=== PATIENT | female | born 1990 | race Caucasian/White ===

== ENCOUNTER → 2018-05-27 | Outpatient (CLI) | payer BC, MEDICAID ==
[~2018-05-27] MED LIST: CRS350T PO; CYCL10TA9 PO; D50KC PO; GADOBUTROL 7.5 MMOL/7.5 ML (GADAVIST) VIAL IV ONE; HTP PO; MAGN400T6 PO; MELO-195 PO; MSM PO; MTF500T PO; SPIR100T28 PO; SRTR100T PO; TRM50T PO; [UNRECOGNIZED DRUG - CODE] PO; [UNRECOGNIZED DRUG - OTHER] PO; armour thyroid PO; ativan PO; cymbalta PO; effexor PO; gabapentin PO; glucosamine PO; kelp PO; nystatin PO; oxycodone PO; zenpep PO
--- NOTE | 2018-05-27 11:03 | Diagnostic Imaging Report ---
CLINICAL INDICATION: Questionable growth on pituitary. Patient states white spot was seen on her brain MRI. EXAM: MRI of the brain and pituitary using pituitary protocol performed without and with 7 mL of Gadavist IV gadolinium. Sequences include sagittal T1, axial gradient echo, axial flair, axial T1, axial DWI, axial ADC map, coronal T1 thin, sagittal T1 thin, coronal T2 fat-sat thin, axial T1 post contrast whole brain, sagittal T1 post IV contrast whole brain, coronal T1 fat-sat post IV contrast whole brain, axial T1 thin post contrast, coronal T1 post IV gadolinium thin fat sat, and sagittal T1 post gadolinium thin. COMPARISON: MRI of the brain/pituitary without and with IV contrast dated 10/27/2014. FINDINGS: SELLA/SUPRASELLA REGIONS: There is a 3 mm x 5 mm x 5 mm (AP x Trans x CC) slightly hypoenhancing area involving the posterior right side of the pituitary gland. This area is not as well delineated on the prior study as it is on this exam. There also appears to be slight impression upon the roof of the right sphenoid sinus compared to the prior study. This area appears to be associated with the previously seen indeterminate 4 mm hypoenhancing area and the right side of the sella. Infundibulum is stable and grossly midline. The sella and suprasellar regions have normal anatomic appearance. The visualized portions of the optic nerves and pathways are unremarkable. ORBITS/ GLOBES: Visualized portions are unremarkable. CAVERNOUS SINUS/ MECKEL'S CAVE: Unremarkable. BRAIN/HEAD STRUCTURES: The previously seen small area of high T2 signal in the left frontal lobe centrum semiovale has resolved. There is interval decreased size of a small subcortical high T2 signal in the right parietal lobe which currently measures 4 mm compared to a prior study measured at 6 mm. The previously seen area of high T2 signal involving the right temporal lobe region has nearly resolved. There is slight decreased size of the subcortical high T2 signal in the lateral right temporal lobe which currently measures 4 mm compared to the prior study measured at 5 mm. Stable small patchy areas of high T2 signal involving the occipital lobes bilaterally. There are no new areas of high T2 signal white matter changes seen compared to the prior study. The brain parenchymal volume appears appropriate for patient's age. There is no brain herniation, midline shift, or hydrocephalus. Basal cisterns are unremarkable. The [place] vascular structures show no gross abnormality as visualized. The intracranial soft tissue, skull, and orbits are unremarkable. There is mild mucosal thickening involving the ethmoid sinus. There is a small amount of fluid in the right mastoid air cells. IMPRESSION: 1: There is interval increased conspicuity of a 5 mm hypoenhancing area involving the right posterior aspect of the pituitary gland which may represent a microadenoma. This appears associated with the previously seen indeterminate lesion on the prior study. 2: There is interval resolution of a left frontal lobe small high T2 signal area and decreased size of multiple previously seen small high T2 signal white matter changes involving both cerebral hemispheres. These are described above. These areas are nonspecific and a demyelinating process can't be completely excluded. Dictated by: Dictated on workstation # [id number]
== END ==
LOC: RAD 08:18
PROVIDERS: ATTEND Nurse Practitioner Family
DX: Z00.01 Encounter for general adult medical examination with abnormal findings (principal); D35.2 Benign neoplasm of pituitary gland; R90.82 White matter disease, unspecified
CPT/HCPCS: 70553

== ENCOUNTER → 2018-07-01 | Outpatient (CLI) | payer BC, MEDICAID ==
--- NOTE | 2018-07-01 16:20 | Diagnostic Imaging Report ---
PROCEDURE: MRI lumbar spine with and without contrast. TECHNIQUE: Multiplanar, multisequence MRI of the lumbar spine was performed with and without contrast. DATE: July 01, 2018. COMPARISON: Lumbar spine radiographs, February 13, 2018. INDICATION: 27-year-old female, back and bilateral leg pain. 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 FINDINGS: There are small thoracolumbar Schmorl's nodes. The alignment of the lumbar spine is unremarkable. There is no evidence of diffuse marrow infiltrating or replacing process. There is no compression deformity or otherwise identified fracture. There is no visualized pars interarticularis defect. The visualized cord and conus medullaris is unremarkable and terminates at the L1-L2 level. The disc heights are well preserved. There is no thickening of nerve roots or abnormal contrast enhancement. T12-L1: There is an annular tear and right paracentral/lateral recess disc protrusion without high-grade narrowing of the right lateral recess or definite nerve root contact. The facet joints and ligamentum flavum at this level are unremarkable. There is no foraminal stenosis. There is no spinal stenosis. L1-L2: There is no disc bulge. The facet joints and ligamentum flavum are unremarkable. There is no foraminal narrowing. There is no spinal canal stenosis. L2-L3: There is no disc bulge. The facet joints and ligamentum flavum are unremarkable. There is no foraminal narrowing. There is no spinal canal stenosis. L3-L4: There is no disc bulge. The facet joints and ligamentum flavum are unremarkable. There is no foraminal narrowing. There is no spinal canal stenosis. L4-L5: There is no disc bulge. The facet joints and ligamentum flavum are unremarkable. There is no foraminal narrowing. There is no spinal canal stenosis. L5-S1: There is no disc bulge. The facet joints and ligamentum flavum are unremarkable. There is no foraminal narrowing. There is no spinal canal stenosis. IMPRESSION: 1. T12-L1 annular tear and right paracentral/lateral recess disc protrusion without high-grade narrowing of the right lateral recess or definite nerve root contact. No foraminal or spinal stenosis at this level. 2. Multilevel small thoracolumbar Schmorl's nodes without abnormal bone alignment. 3. Normal nerve root thickness and no abnormal enhancement of nerve roots. Dictated by: Dictated on workstation # [id number]
--- NOTE | 2018-07-01 16:24 | Diagnostic Imaging Report ---
EXAM: MRI thoracic spine without and with intravenous contrast. DATE: July 01, 2018. INDICATION: 27-year-old female, inflammatory polyneuropathy. Back pain. COMPARISON: None. TECHNIQUE: Multiple pre and post contrast MRI sequences of the thoracic spine were obtained. FINDINGS: The alignment of the thoracic spine is unremarkable. There is no evidence of a diffuse marrow infiltrating or replacing process. There is no concerning focal bone lesion. There is no identified abnormal signal within the spinal cord. There is no identified abnormal contrast enhancement. There are multilevel small thoracolumbar Schmorl's nodes. There is no identified abnormal kyphosis. At T5-T6, there is a right paracentral disc extrusion which does contact the anterior aspect of the spinal cord although without high-grade spinal stenosis. At T6-T7, there is a left paracentral disc protrusion without high-grade spinal stenosis. This is also seen at T7-T8 and T8-T9. There is no high-grade spinal stenosis at the thoracic spine levels. At T12-L1, there is an annular tear and right paracentral/lateral recess disc protrusion without high-grade narrowing of the right lateral recess or definite nerve root contact. The facet joints and ligamentum flavum at this level are unremarkable. There is no foraminal stenosis. There is no spinal stenosis. IMPRESSION: 1. No identified abnormal cord signal or enhancement. 2. Paracentral disc extrusion at T5-T6 which does contact the anterior aspect of the spinal cord although without high-grade spinal stenosis. Small left paracentral disc protrusions at T6-T7, T7-T8, and T8-T9 without high-grade spinal stenosis at these levels. T12-L1 annular tear with right paracentral/lateral recess disc protrusion without definite nerve root contact, narrowing of the lateral recess, foraminal stenosis, or spinal stenosis. 3. Multilevel small thoracolumbar Schmorl's nodes without abnormal bone alignment. 4. No concerning focal bone lesion. Dictated by: Dictated on workstation # [id number]
== END ==
LOC: RAD 14:30
PROVIDERS: ATTEND Nurse Practitioner Family
DX: M51.25 Other intervertebral disc displacement, thoracolumbar region (principal); M51.35 Other intervertebral disc degeneration, thoracolumbar region; M51.45 Schmorl's nodes, thoracolumbar region; G61.9 Inflammatory polyneuropathy, unspecified
CPT/HCPCS: 72157; 72158

== ENCOUNTER → 2018-07-02 | Outpatient (CLI) | payer BC, MEDICAID ==
--- NOTE | 2018-07-02 11:53 | Diagnostic Imaging Report ---
PROCEDURE: MR imaging cervical spine with and without contrast. TECHNIQUE: Multiplanar and multisequence MRI of the cervical spine was performed with and without contrast. INDICATION: Neck and arm pain. Inflammatory polyneuropathy. COMPARISON: MRI cervical spine without contrast 03/11/2012. FINDINGS: Normal alignment. Vertebral body heights are preserved. No substantial spondylotic change. No abnormal bone marrow signal or enhancement. No abnormal signal or enhancement in the cervical spinal cord. The visualized cervical nerve roots are unremarkable. Stable mild uncovertebral joint hypertrophy and mild bilateral neural foraminal narrowing at C4-C5. There is no high-grade neural foraminal narrowing in the cervical spine. No spinal canal narrowing. The visualized paravertebral soft tissues are negative. IMPRESSION: 1. Mild spondylotic changes are stable. There remains no high-grade neural impingement in the cervical spine. 2. No acute osseous or ligamentous findings. 3. No abnormal signal or enhancement in the cervical spinal cord or visualized nerve roots. Dictated by: Dictated on workstation # [id number]
== END ==
LOC: RAD 09:09
PROVIDERS: ATTEND Internal Medicine
DX: M47.812 Spondylosis without myelopathy or radiculopathy, cervical region (principal); M25.80 Other specified joint disorders, unspecified joint; G61.9 Inflammatory polyneuropathy, unspecified
CPT/HCPCS: 72156

== ENCOUNTER 2018-09-10 11:45 | Outpatient (RCR) | payer BC, MEDICAID ==
[~2018-09-10 11:45] MED LIST changes: -GADOBUTROL 7.5 MMOL/7.5 ML (GADAVIST) VIAL IV ONE
== END 2018-09-11 17:00 | disposition home or self-care (01) ==
PROVIDERS: ATTEND Physician Assistant
DX: M76.61 Achilles tendinitis, right leg (principal); M25.562 Pain in left knee

== ENCOUNTER 2018-10-21 10:10 | Outpatient (RCR) | payer BC, MEDICAID | END 2018-10-21 11:10 | disposition home or self-care (01) | PROVIDERS: ATTEND Pain Medicine Interventional Pain Medicine | DX: M54.6 Pain in thoracic spine (principal) ==

== ENCOUNTER → 2019-03-26 | Outpatient (CLI) | payer BC, MEDICAID ==
--- NOTE | 2019-03-26 10:38 | Diagnostic Imaging Report ---
INDICATION: Left neck swelling. COMPARISON: None available. TECHNIQUE: Multi-projectional sonographic imaging of the left neck was performed in the area of palpable concern. FINDINGS: At the site of palpable concern, there is an ovoid solid-appearing hypoechoic mass that measures 3.2 x 1.6 x 0.7 cm. There is vascularity associated with the mass. No echogenic hilum is noted. IMPRESSION: At the site of palpable concern in the left neck, there is an elongated hypoechoic mass that could represent an abnormal lymph node. Advise continued follow-up with physical exam, and if this does not resolve in the next 4-6 weeks, CT soft tissue neck with contrast would be advised for further characterization. Dictated by: Dictated on workstation # [id number]
== END ==
LOC: RAD 08:44
PROVIDERS: ATTEND Surgery
DX: R22.1 Localized swelling, mass and lump, neck (principal)
CPT/HCPCS: 76536

== ENCOUNTER → 2019-04-02 | Outpatient (CLI) | payer BC, MEDICAID ==
[~2019-04-02] MED LIST changes: +BUSP15TA60 PO; +CATHETER FLUSH 10 ML SYR IV PRN; +DIVA250T2 PO; +DULO60CA6 PO; +ERGO2000 PO; +GABA-488 PO; +HOLD METFORMIN - RECEIVED CONTRAST 20 ML VIAL IV SCH; +IOHEXOL 350 MG/ML 100 ML (OMNIPAQUE 350) VIAL IV ONE; +LEVO112T55 PO; +METF-397 PO; +NAPR-1070 PO; +NS 100 ML (IVPB) BAG IV ONE; +SPIR50TA4 PO
--- NOTE | 2019-04-02 15:51 | Diagnostic Imaging Report ---
CLINICAL INDICATION: Patient with left-sided neck mass x3 years. Area marked with BB. EXAM: Axial CT scan of the neck soft tissue performed with 75 cc of Omnipaque 350 IV contrast with coronal and sagittal reformatted images. Auto Exposure Controls were utilized during the CT exam to meet ALARA standards for radiation dose reduction. COMPARISON: Ultrasound of the neck soft tissue dated 03/26/2019. MRI of the cervical spine without and with contrast dated 07/02/2018. FINDINGS: There is bilateral cervical lymphadenopathy with the left side worse than the right. These enlarged lymph nodes are seen throughout all levels of the neck. The largest marker lymph node is seen in the left level 5B region seen on image 63 axial sequence and measures 1.3 cm x 1.7 cm. Next largest lymph node is 1.4 cm x 1.3 cm x 2.3 cm (AP x Trans x CC) and is just superiorly adjacent to this other previously described lymph node in the left level 5B region. There is also lymph nodes in the subclavicular regions and upper mediastinal regions. Marker lymph node in the high right anterior paratracheal region measures 1.4 cm x 1.0 cm. There appears to be mild emphysematous lung changes. The nasopharynx, oropharynx, hypopharynx, laryngeal soft tissue structures are unremarkable. Thyroid gland is unremarkable. There is a nodular mass in the anterior superficial portion of the left parotid gland which measures 0.8 cm x 1.2 cm. Cervical spine MRI showed prominent lymph nodes bilaterally, but to a lesser degree than on today's exam. Salivary glands are otherwise unremarkable. Neck vasculature structures show no significant abnormality. Cervical spine shows no significant abnormality. IMPRESSION: There is marked bilateral cervical lymphadenopathy with the largest lymph node measuring 2.3 cm in the left level 5B region. There is also prominent lymph nodes in the upper mediastinal region. There is no other significant neck abnormality or mass seen. Given these findings, etiology such as lymphoproliferative disorder such as lymphoma or leukemia should be excluded. Although there is no significant nasopharyngeal abnormality, mononucleosis should also be excluded. Dictated by: Dictated on workstation # [id number]
== END ==
LOC: RAD 12:18
PROVIDERS: ATTEND Surgery
DX: R59.0 Localized enlarged lymph nodes (principal)
CPT/HCPCS: 70491

== ENCOUNTER 2019-04-06 06:37 | Outpatient (CLI) | payer BC, MEDICAID ==
[~2019-04-06] VITALS: Ht 167.7 cm; Wt 80.5 kg
[~2019-04-06 06:37] MED LIST changes: -BUSP15TA60 PO; -CATHETER FLUSH 10 ML SYR IV PRN; -DIVA250T2 PO; -DULO60CA6 PO; -ERGO2000 PO; -GABA-488 PO; -HOLD METFORMIN - RECEIVED CONTRAST 20 ML VIAL IV SCH; -IOHEXOL 350 MG/ML 100 ML (OMNIPAQUE 350) VIAL IV ONE; -LEVO112T55 PO; -METF-397 PO; -NAPR-1070 PO; -NS 100 ML (IVPB) BAG IV ONE; -SPIR50TA4 PO
[2019-04-06] MEDS ORDERED: LEVO112T55 PO (09:35)
[2019-04-06] MEDS ORDERED: GABA-488 PO (09:35)
[2019-04-06] MEDS ORDERED: NAPR-1070 PO (09:35)
[2019-04-06] MEDS ORDERED: SPIR50TA4 PO (09:35)
[2019-04-06] MEDS ORDERED: DIVA250T2 PO ×2 (09:35)
[2019-04-06] MEDS ORDERED: BUSP15TA60 PO (09:35)
[2019-04-06] MEDS ORDERED: DULO60CA6 PO (09:35)
[2019-04-06] MEDS ORDERED: ERGO2000 PO (09:35)
[2019-04-06] MEDS ORDERED: METF-397 PO (09:35)
[2019-04-08] MEDS ORDERED: HYDR-34 PO (09:30)
== END 2019-04-06 10:04 | disposition home or self-care (01) ==
LOC: PREOP 06:37
PROVIDERS: ATTEND Surgery
DX: Z01.818 Encounter for other preprocedural examination (principal)

== ENCOUNTER → 2019-04-20 | Outpatient (CLI) | payer BC, MEDICAID ==
[~2019-04-20] MED LIST changes: +BUSP15TA60 PO; +DIVA250T2 PO; +DULO60CA6 PO; +ERGO2000 PO; +GABA-488 PO; +HYDR-34 PO; +LEVO112T55 PO; +METF-397 PO; +NAPR-1070 PO; +SPIR50TA4 PO
--- NOTE | 2019-04-20 15:51 | Diagnostic Imaging Report ---
INDICATION: B-cell lymphoma, initial staging. TECHNIQUE: Serum blood glucose level at the time of injection was 90 mg/dL. Patient was administered 14 mCi F-18 FDG intravenously in the right forearm and PET imaging from the top of skull to mid thighs was performed. Noncontrast CT was also performed for attenuation correction and anatomic correlation. All CT scans use one or more of the following dose optimizing techniques: automated exposure control, MA and/or KvP adjustment based on patient size and exam type or iterative reconstruction. COMPARISON: No prior PET/CT studies available for comparison. FINDINGS: There is symmetric activity throughout the brain. There are hypermetabolic lymph nodes along bilateral cervical chains. Right-sided jugulodigastric and left posterior cervical hypermetabolic nodes are present. Left posterior cervical node SUV max approximately 4.1. A right neck lymph node SUV max 4.5. There are bilateral supraclavicular hypermetabolic nodes. There is some uptake involving the humeral heads bilaterally as well. There are numerous enlarged and hypermetabolic bilateral axillary lymph nodes. Mild to moderate uptake involving mediastinal, predominantly subcarinal nodes present. Upper abdomen does show some uptake involving numerous lymph nodes in the right upper quadrant in the region of the mayco hepatis and portacaval location. There is also some uptake involving lower central retroperitoneal lymph nodes. There are hypermetabolic nodes along the iliac chains bilaterally as well as in the inguinal regions bilaterally. IMPRESSION: Numerous hypermetabolic lymph nodes within the neck, chest, abdomen and pelvis, as described, consistent with patient's diagnosis of lymphoma. Dictated by: Dictated on workstation # [id number]
== END ==
LOC: RAD 12:17
PROVIDERS: ATTEND Internal Medicine Hematology & Oncology
DX: C85.11 Unspecified B-cell lymphoma, lymph nodes of head, face, and neck (principal)

== ENCOUNTER 2019-04-27 06:35 | Outpatient (CLI) | payer BC, MEDICAID ==
[~2019-04-27] VITALS: Ht 167 cm; Wt 80.9 kg
[2019-04-28] MEDS ORDERED: ALPR0.5T7 PO (08:27)
[2019-04-28] MEDS ORDERED: HYDR15SO6 PO (09:49)
== END 2019-04-27 12:23 | disposition home or self-care (01) ==
LOC: PREOP 06:35
PROVIDERS: ATTEND Surgery
DX: Z01.818 Encounter for other preprocedural examination (principal)

== ENCOUNTER 2019-04-28 07:28 | Day surgery (SDC) | payer BC, MEDICAID ==
[~2019-04-28] VITALS: Ht 167 cm; Wt 80.9 kg
[2019-04-28] VITALS (8 sets, daily range): BP systolic 101–127; BP diastolic 65–84
--- OUTSIDE RECORDS SUMMARY | 2019-04-28 07:32 | XMS REPORT | Clinical Summary ---
Author Author [facility] Organization [facility] Address Unknown Phone Unavailable Care Team Providers Care Junior Php Developer Name Role Phone Katty Suarez MD Unavailable Kierra Rodrigez APRN PCP Source Comments Some departments are not documenting in the electronic medical record. If you d o not see the information that you expected, contact Release of Information in [facility] [employer] Information Management department at [phone] for further assistan ce in locating additional records.[facility] Allergies Comments Active Allergy Reactions Severity Noted Date Lactose NAUSEA ONLY Low 11/30/2014 Seasonal Allergies RHINORRHEA Low 11/30/2014 Medications End Date Status Medication Sig Dispensed Refills Start Date Active DULoxetine DR (CYMBALTA) Take 30 mg by 0 30 mg capsule mouth daily. Active spironolactone Take 100 mg 0 (ALDACTONE) 100 mg tablet by mouth daily. Active nystatin 500,000 unit Take 500,000 0 tablet Units by mouth four times daily. Active other medication 1 Dose daily. 0 65MG Nature Thyroid Active metFORMIN (GLUCOPHAGE) Take 500 mg 0 500 mg tablet by mouth daily. Active venlafaxine (EFFEXOR) 75 Take 75 mg by 0 mg tablet mouth twice daily. Active magnesium oxide (MAG-OX) Take 400 mg 0 400 mg tablet by mouth daily. Active LIPASE/PROTEASE/AMYLASE Take 1 Cap by 0 (ZENPEP PO) mouth twice daily. Active CHOLECALCIFEROL (VITAMIN Take 50,000 0 D3) (VITAMIN D3 PO) Int'l Units by mouth every 7 days. Active cyanocobalamin (VITAMIN Inject 1,000 0 B-12, RUBRAMIN) 1,000 mcg to mcg/mL injection area(s) as directed every 7 days. Active gabapentin (NEURONTIN) Take 300 mg 0 300 mg capsule by mouth three times daily. Active temazepam (RESTORIL) 15 Take 15 mg by 0 mg capsule mouth at bedtime as needed. Active Iodine (Kelp) (KELP) tab Take 600 Tabs 0 by mouth daily. Active ondansetron (ZOFRAN) 4 mg Take 4 mg by 0 tablet mouth every 8 hours as needed for Nausea. Active oxyCODONE (ROXICODONE) 5 Take 5 mg by 0 mg tablet mouth every 4 hours as needed for Pain Active amantadine HCl Take 1 Cap by 60 Cap 5 (SYMMETREL) 100 mg mouth twice 5 capsule daily. 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 PCOS (polycystic ovarian syndrome) Tremors of nervous system Hypothyroidism Family History Medical History Relation Name Comments Cancer Maternal Grandfather Cancer Mother Hypertension Mother Thyroid Disease Mother Relation Name Status Comments Brother Alive Father Alive Maternal Grandfather Mother Alive Social History Date Tobacco Use Types Packs/Day Years Used Current Every Day Smoker Cigarettes 8 Smokeless Tobacco: Never Used Drinks/Week oz/Week Comments Alcohol Use No Sex Assigned at Date Recorded Not on file Industry Job Start Date Occupation Not on file Not on file Not on file Travel End Travel History Travel Start No recent travel history available. Last Filed Vital Signs Reading Time Taken Comments Vital Sign 120/84 05/09/2015 9:04 AM CDT Blood Pressure 71 05/09/2015 9:04 AM CDT Pulse 36.7 C (98 F) 01/25/2015 10:24 AM [employer] Temperature 16 01/25/2015 10:24 AM [employer] Respiratory Rate - - Oxygen Saturation - - Inhaled Oxygen Concentration 88.5 kg (195 lb) 05/09/2015 9:04 AM CDT Weight 167.6 cm (5' 5.98") 05/09/2015 9:04 AM CDT Height 31.49 05/09/2015 9:04 AM CDT Body Mass Index Plan of Treatment Health Maintenance Due Date Last Done Comments DTAP/TDAP VACCINES (1 - 2000 Tdap) HIV SCREENING 2004 PHYSICAL (COMPREHENSIVE) 07/28/2007 EXAM CERVICAL CANCER SCREENING 2010 INFLUENZA VACCINE 09/10/2018 Results Not on filefrom Last 3 Months Advance Directives Patient Assessor Explanation Type Date Recorded Advance 12/05/2014 2:09 PM Directive/DPOA
--- OUTSIDE RECORDS SUMMARY | 2019-04-28 07:33 | XMS REPORT | Continuity of Care Document ---
Demographics Preferred Language Unknown Marital Status Unknown Mormonism Affiliation Unknown Race Unknown Ethnic Group Unknown Author Organization Unknown Address Unknown Phone Unavailable Allergies Active Description Code Type Severity Reaction Onset Reported/Identified Relationship to Patient Clinical Status Yes No Known Drug Allergies [id number] Drug Allergy Unknown N/A 08/16/2010 Medications There is no data. 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 03/15/2010 719.46 Zelalem n In Joint Involving Lower Leg 03/15/2010 729.1 MYAL ALLIE AND MYOSITIS UNSPECIFIED 03/15/2010 300.4 DYST HYMIC DISORDER 03/15/2010 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 03/15/2010 719.46 Zelalem n In Joint Involving Lower Leg 03/15/2010 729.1 MYAL ALLIE AND MYOSITIS UNSPECIFIED 04/20/2010 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 04/20/2010 384.20 Per foration Of Tympanic Membrane Unspecified 04/20/2010 466.0 Bron chitis, Acute 04/20/2010 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 04/20/2010 384.20 Per foration Of Tympanic Membrane Unspecified 04/20/2010 466.0 Bron chitis, Acute 01/21/2011 307.81 TEN KLAUDIA HEADACHE 01/21/2011 307.81 TEN KLAUDIA HEADACHE 03/09/2011 525.9 TOOT H PAIN 03/09/2011 525.9 TOOT H PAIN 10/15/2011 V05.3 HEP B (ADULT) DX 10/15/2011 V05.3 HEP B (ADULT) DX 07/08/2012 V06.1 TDAP DX 07/08/2012 V74.1 TB S CREENING 01/17/2014 DIEGO BLANCO, JUSTIN L Ot 088.81 01/17/2014 DIEGO BLANCO, JUSTIN L Ot V58.62 01/17/2014 DIEGO BLANCO, JUSTIN L Ot 088.81 01/17/2014 DIEGO BLANCO, JUSTIN L Ot V58.62 01/24/2014 DIEGO BLANCO, JUSTIN L Ot 088.81 01/24/2014 DIEGO BLANCO, JUSTIN L Ot V58.62 02/07/2014 DIEGO BLANCO, JUSTIN L Ot 259 .9 02/07/2014 DIEGO BLANCO, JUSTIN L Ot V58.62 04/25/2014 Ot 244.9 04/25/2014 Ot 250.00 04/25/2014 Ot 787.99 05/03/2014 Ot 723.4 05/03/2014 HEATHER NGUYEN 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 Ot 458.29 05/03/2014 HEATHER NGUYEN 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 Ot E947.9 05/03/2014 DIEGO BLANCO, JUSTIN L Ot 259 .9 05/03/2014 DIEGO BLANCO, JUSTIN L Ot 289.82 05/03/2014 DIEGO BLANCO, JUSTIN L Ot 472 .0 05/03/2014 DIEGO BLANCO, JUSTIN L Ot 473 .9 05/03/2014 DIEGO BLANCO, JUSTIN L Ot 729 .1 05/03/2014 DIEGO BLANCO, JUSTIN L Ot 784 .1 05/03/2014 DIEGO BLANCO, JUSTIN L Ot 784.91 05/03/2014 DIEGO BLANCO, JUSTIN L Ot 785 .6 05/03/2014 HEATHER NGUYEN 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 Ot 793.89 05/03/2014 DIEGO BLANCO, JUSTIN L Ot 242.90 05/03/2014 DIEGO BLANCO, JUSTIN L Ot 244 .9 05/03/2014 DIEGO BLANCO, JUSTIN L Ot 259 .9 05/03/2014 DIEGO BLANCO, JUSTIN L Ot 277 .9 05/03/2014 DIEGO BLANCO, JUSTIN L Ot 704.00 05/03/2014 DIEGO BLANCO, JUSTIN L Ot 729 .1 05/03/2014 DIEGO BLANCO, JUSTIN L Ot 780.79 05/03/2014 DIEGO BLANCO, JUSTIN L Ot 783 .1 05/03/2014 DIEGO BLANCO, JUSTIN L Ot 784 .0 05/03/2014 DIEGO BLANCO, JUSTIN L Ot V58.69 05/03/2014 DIEGO LBANCO, JUSTIN L Ot 259 .9 05/03/2014 DIEGO BLANCO, JUSTIN L Ot 289.82 05/03/2014 DIEGO BLANCO, JUSTIN L Ot 259 .9 05/03/2014 DIEGO MD, JUSTIN L Ot V58.62 05/03/2014 DIEGO MD, JUSTIN L Ot 088.81 05/03/2014 DIEGO MD, JUSTIN L Ot V58.62 05/03/2014 Ot V72.84 05/04/2014 DIEGO BLANCO, JUSTIN L Ot 088.81 05/04/2014 DIEGO BLANCO, JUSTIN L Ot V58.62 05/06/2014 DIEGO BLANCO, JUSTIN L Ot 088.81 05/06/2014 DIEGO BLANCO, JUSTIN L Ot V58.62 05/12/2014 DIEGO BLANCO, JUSTIN L Ot 788.42 05/26/2014 Ot V72.84 08/01/2014 DIEGO BLANCO, JUSTIN L Ot 088.81 08/01/2014 DIEGO BLANCO, JUSTIN L Ot V58.62 09/30/2014 HEATHER NGUYEN L 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 Ot 458.29 09/30/2014 JEFF NGUYENIA L 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 Ot E947.9 09/30/2014 Ot 723.4 09/30/2014 HEATHER NGUYEN 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 Ot 458.29 09/30/2014 HEATHER NGUYEN 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 Ot E947.9 09/30/2014 DIEGO BLANCO, JUSTIN L Ot 259 .9 09/30/2014 DIEGO BLANCO, JUSTIN L Ot 289.82 09/30/2014 DIEGO BLANCO, JUSTIN L Ot 472 .0 09/30/2014 DIEGO BLANCO, JUSTIN L Ot 473 .9 09/30/2014 DIEGO BLANCO, JUSTIN L Ot 729 .1 09/30/2014 DIEGO BLANCO, JUSTIN L Ot 784 .1 09/30/2014 DIEGO BLANCO, JUSTIN L Ot 784.91 09/30/2014 DIEGO BLANCO, JUSTIN L Ot 785 .6 09/30/2014 HEATHER NGUYEN L 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 Ot 793.89 09/30/2014 DIEGO BLANCO, JUSTIN L Ot 242.90 09/30/2014 DIEGO BLANCO, JUSTIN L Ot 244 .9 09/30/2014 DIEGO BLANCO, JUSTIN L Ot 259 .9 09/30/2014 DIEGO BLANCO, JUSTIN L Ot 277 .9 09/30/2014 DIEGO BLANCO, JUSTIN L Ot 704.00 09/30/2014 DIEGO BLANCO, JUSTIN L Ot 729 .1 09/30/2014 DIEGO BLANCO, JUSTIN L Ot 780.79 09/30/2014 DIEGO BLANCO, JUSTIN L Ot 783 .1 09/30/2014 DIEGO MD, JUSTIN L Ot 784 .0 09/30/2014 DIEGO BLANCO, JUSTIN L Ot V58.69 09/30/2014 DIEGO BLANCO, JUSTIN L Ot 259 .9 09/30/2014 DIEGO BLANCO, JUSTIN L Ot 289.82 09/30/2014 DIEGO MD, JUSTIN L Ot 259 .9 09/30/2014 DIEGO MD, JUSTIN L Ot V58.62 09/30/2014 Ot V72.84 09/30/2014 DIEGO BLANCO, JUSTIN L Ot 788.42 09/30/2014 DIEGO BLANCO, JUSTIN L Ot 088.81 09/30/2014 DIEGO BLANCO, JUSTIN L Ot V58.62 09/30/2014 DIEGO BLANCO, JUSTIN L Ot 259 .9 09/30/2014 DIEGO BLANCO, JUSTIN L Ot 289.82 09/30/2014 DIEGO BLANCO, JUSTIN L Ot 472 .0 09/30/2014 DIEGO LBANCO, JUSTIN L Ot 473 .9 09/30/2014 DIEGO BLANCO, JUSTIN L Ot 729 .1 09/30/2014 DIEGO BLANCO, JUSTIN L Ot 784 .1 09/30/2014 DIEGO BLANCO, JUSTIN L Ot 784.91 09/30/2014 DIEGO BLANCO, JUSTIN L Ot 785 .6 09/30/2014 HEATHER NGUYEN 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 Ot 793.89 09/30/2014 DIEGO BLANCO, JUSTIN L Ot 259 .9 09/30/2014 DIEGO BLANCO, JUSTIN L Ot 289.82 09/30/2014 DIEGO BLANCO, JUSTIN L Ot 259 .9 09/30/2014 DIEGO BLANCO, JUSTIN L Ot V58.62 10/19/2014 Ot 723.4 10/19/2014 HEATHER NGUYEN 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 Ot 458.29 10/19/2014 HEATHER NGUYEN 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 Ot E947.9 10/19/2014 DIEGO BLANCO, JUSTIN L Ot 259 .9 10/19/2014 DIEGO BLANCO, JUSTIN L Ot 289.82 10/19/2014 DIEGO BLANCO, JUSTIN L Ot 472 .0 10/19/2014 DIEGO BLANCO, JUSTIN L Ot 473 .9 10/19/2014 DIEGO MD, JUSTIN L Ot 729 .1 10/19/2014 DIEGO MD, JUSTIN L Ot 784 .1 10/19/2014 DIEGO MD, JUSTIN L Ot 784.91 10/19/2014 DIEGO MD, JUSTIN L Ot 785 .6 10/19/2014 NGUYENHEATHER 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 Ot 793.89 10/19/2014 DIEGO , JUSTIN L Ot 242.90 10/19/2014 DIEGO MD, JUSTIN L Ot 244 .9 10/19/2014 DIEGO MD, JUSTIN L Ot 259 .9 10/19/2014 DIEGO MD, JUSTIN L Ot 277 .9 10/19/2014 DIEGO MD, JUSTIN L Ot 704.00 10/19/2014 DIEGO MD, JUSTIN L Ot 729 .1 10/19/2014 DIEGO MD, JUSTIN L Ot 780.79 10/19/2014 DIEGO MD, JUSTIN L Ot 783 .1 10/19/2014 DIEGO , JUSTIN L Ot 784 .0 10/19/2014 DIEGO BLANCO, JUSTIN L Ot V58.69 10/19/2014 DIEGO BLANCO, JUSTIN L Ot 259 .9 10/19/2014 DIEGO BLANCO, JUSTIN L Ot 289.82 10/19/2014 DIEGO , JUSTIN L Ot 259 .9 10/19/2014 DIEGO BLANCO, JUSTIN L Ot V58.62 10/19/2014 Ot V72.84 10/19/2014 DIEGO BLANCO, JUSTIN L Ot 788.42 10/19/2014 DIEGO BLANCO, JUSTIN L Ot 088.81 10/19/2014 DIEGO BLANCO, JUSTIN L Ot V58.62 10/19/2014 DIEGO BLANCO, JUSTIN L Ot 088.81 10/19/2014 DIEGO BLANCO, JUSTIN L Ot V58.62 10/19/2014 DIEGO BLANCO, JUSTIN L Ot 088.81 10/19/2014 DIEGO BLANCO, JUSTIN L Ot V58.62 10/19/2014 DIEGO BLANCO, JUSTIN L Ot 088.81 10/19/2014 DIEGO BLANCO, JUSTIN L Ot V58.62 10/19/2014 DIEGO BLANCO, JUSTIN L Ot 088.81 10/19/2014 DIEGO BLANCO, JUSTIN L Ot V58.62 10/19/2014 DIEGO BLANCO, JUSTIN L Ot 088.81 10/19/2014 DIEGO BLANCO, JUSTIN L Ot V58.62 10/20/2014 DIEGO BLANCO, JUSTIN L Ot 088.81 10/20/2014 JUSTIN CORTEZ MD L Ot V58.62 11/09/2014 DIEGO BLANCO, JUSTIN L Ot 088.81 LYME DISEASE 11/09/2014 JUSTIN CORTEZ MD L Ot V58.62 ENCOUNT FOR LONG-TERM(CURRENT) USE OF AN 11/14/2014 Ot 723.4 11/14/2014 HEATHER NGUYEN 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 Ot 458.29 11/14/2014 HEATHER NGUYEN 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 Ot E947.9 11/14/2014 DIEGO BLANCO, JUSTIN L Ot 259 .9 11/14/2014 DIEGO BLANCO, JUSTIN L Ot 289.82 11/14/2014 DIEGO BLANCO, JUSTIN L Ot 472 .0 11/14/2014 DIEGO BLANCO, JUSTIN L Ot 473 .9 11/14/2014 DIEGO BLANCO, JUSTIN L Ot 729 .1 11/14/2014 DIEGO BLANCO, JUSTIN L Ot 784 .1 11/14/2014 DIEGO BLANCO, JUSTIN L Ot 784.91 11/14/2014 DIEGO BLANCO, JUSTIN L Ot 785 .6 11/14/2014 HEATHER NGUYEN 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 Ot 793.89 11/14/2014 DIEGO BLANCO, JUSTIN L Ot 242.90 11/14/2014 DIEGO BLANCO, JUSTIN L Ot 244 .9 11/14/2014 DIEGO BLANCO, JUSTIN L Ot 259 .9 11/14/2014 DIEGO BLANCO, JUSTIN L Ot 277 .9 11/14/2014 DIEGO BLANCO, JUSTIN L Ot 704.00 11/14/2014 DIEGO BLANCO, JUSTIN L Ot 729 .1 11/14/2014 DIEGO BLANCO, JUSTIN L Ot 780.79 11/14/2014 DIEGO BLANCO, JUSTIN L Ot 783 .1 11/14/2014 DIEGO BLANCO, JUSTIN L Ot 784 .0 11/14/2014 DIEGO BLANCO, JUSTIN L Ot V58.69 11/14/2014 DIEGO BLANCO, JUSTIN L Ot 259 .9 11/14/2014 DIEGO BLANCO, JUSTIN L Ot 289.82 11/14/2014 DIEGO BLANCO, JUSTIN L Ot 259 .9 11/14/2014 DIEGO BLANCO, JUSTIN L Ot V58.62 11/14/2014 Ot V72.84 11/14/2014 DIEGO BLANCO, JUSTIN L Ot 788.42 11/14/2014 HEATHER NGUYEN 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 Ot 112.9 11/14/2014 NGUYEN, HEATHER L 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 Ot 244.9 11/14/2014 NGUYEN, HEATHER L 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 Ot 256.4 11/14/2014 NGUYEN, HEATHER L 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 Ot 268.9 11/14/2014 NGUYEN, HEATHER L 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 Ot 780.60 11/14/2014 NGUYEN, HEATHER L 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 Ot 780.93 11/14/2014 NGUYEN, HEATHER L 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 Ot 784.0 11/14/2014 DIEGO BLANCO, JUSTIN L Ot 259 .9 11/14/2014 DIEGO BLANCO, JUSTIN L Ot V58.62 11/14/2014 DIEGO BLANCO, JUSTIN L Ot 259 .9 11/14/2014 DIEGO BLANCO, JUSTIN L Ot 289.82 01/17/2015 NGUYEN, HEATHER L 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 Ot 112.9 01/17/2015 NGUYEN, HEATHER L 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 Ot 244.9 01/17/2015 NGUYEN, HEATHER L 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 Ot 256.4 01/17/2015 NGUYEN, HEATHER L 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 Ot 268.9 01/17/2015 NGUYEN, HEATHER L 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 Ot 780.60 01/17/2015 NGUYEN, HEATHER L 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 Ot 780.93 01/17/2015 NGUYEN, HEATHER L 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 Ot 784.0 05/08/2015 Ot 723.4 05/08/2015 NGUYEN, HEATHER L 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 Ot 458.29 05/08/2015 NGUYEN, HEATHER L 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 Ot E947.9 05/08/2015 DIEGO BLANCO, JUSTIN L Ot 259 .9 05/08/2015 DIEGO BLANCO, JUSTIN L Ot 289.82 05/08/2015 DIEGO BLANCO, JUSTIN L Ot 472 .0 05/08/2015 DIEGO BLANCO, JUSTIN L Ot 473 .9 05/08/2015 DIEGO BLANCO, JUSTIN L Ot 729 .1 05/08/2015 DIEGO BLANCO, JUSTIN L Ot 784 .1 05/08/2015 DIEGO BLANCO, JUSTIN L Ot 784.91 05/08/2015 DIEGO BALNCO, JUSTNI L Ot 785 .6 05/08/2015 PATRICK HEATHER L 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 Ot 793.89 05/08/2015 DIEGO BLANCO, JUSTIN L Ot 242.90 05/08/2015 DIEGO BLANCO, JUSTIN L Ot 244 .9 05/08/2015 DIEGO BLANCO, JUSTIN L Ot 259 .9 05/08/2015 DIEGO BLANCO, JUSTIN L Ot 277 .9 05/08/2015 DIEGO BLANCO, JUSTIN L Ot 704.00 05/08/2015 DIEGO MD, JUSTIN L Ot 729 .1 05/08/2015 DIEGO BLANCO, JUSTIN L Ot 780.79 05/08/2015 DIEGO BLANCO, JUSTIN L Ot 783 .1 05/08/2015 DIEGO BLANCO, JUSTIN L Ot 784 .0 05/08/2015 DIEGO MD, JUSTIN L Ot V58.69 05/08/2015 DIEGO BLANCO, JUSTIN L Ot 259 .9 05/08/2015 DIEGO BLANCO, JUSTIN L Ot 289.82 05/08/2015 DIEGO BLANCO, JUSTIN L Ot 259 .9 05/08/2015 DIEGO BLANCO, JUSTIN L Ot V58.62 05/08/2015 Ot V72.84 05/08/2015 DIEGO BLANCO, JUSTIN L Ot 788.42 05/08/2015 PATRICK, HEATHER L 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 Ot 112.9 05/08/2015 NGUYEN, HEATHER L 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 Ot 244.9 05/08/2015 NGUYEN, HEATHER L 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 Ot 256.4 05/08/2015 NGUYEN, HEATHER L 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 Ot 268.9 05/08/2015 NGUYEN, HEATHER L 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 Ot 780.60 05/08/2015 NGUYEN, HEATHER L 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 Ot 780.93 05/08/2015 PATRICK, HEATHER L 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 Ot 784.0 05/08/2015 NGUYEN, HEATHER L 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 Ot 112.9 05/08/2015 NGUYEN, HEATHER L 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 Ot 244.9 05/08/2015 NGUYEN, HEATHER L 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 Ot 256.4 05/08/2015 NGUYEN, HEATHER L 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 Ot 268.9 05/08/2015 NGUYEN, HEATHER L 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 Ot 780.60 05/08/2015 NGUYEN, HEATHER L 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 Ot 780.93 05/08/2015 PATRICK HEATHER L 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 Ot 784.0 05/08/2015 DIEGO BLANCO, JUSTIN L Ot 259 .9 05/08/2015 DIEGO BLANCO, JUSTIN L Ot V58.62 05/08/2015 DIEGO BLANCO, JUSTIN L Ot 259 .9 05/08/2015 DIEGO BLANCO, JUSTIN L Ot 289.82 05/08/2015 PATRICK HEATHER L 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 Ot 793.89 05/08/2015 DIEGO BLANCO, JUSTIN L Ot 259 .9 05/08/2015 DIEGO BLANCO, JUSTIN L Ot 289.82 05/08/2015 DIEOG BLANCO, JUSTIN L Ot 472 .0 05/08/2015 DIEGO BLANCO, JUSTIN L Ot 473 .9 05/08/2015 DIEGO BLANCO, JUSTIN L Ot 729 .1 05/08/2015 DIEGO BLANCO, JUSTIN L Ot 784 .1 05/08/2015 DIEGO BLANCO, JUSTIN L Ot 784.91 05/08/2015 DIEGO BLANCO, JUSTIN L Ot 785 .6 05/08/2015 PATRICK HEATHER L 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 Ot 458.29 05/08/2015 JEFF NGUYENIA L 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 Ot E947.9 02/13/2018 JEFF NGUYENIA L 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 Ot 112.9 CANDIDIASIS SITE NOS 02/13/2018 JEFF NGUYENIA L 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 Ot 244.9 HYPOTHYROIDISM NOS 02/13/2018 PATRICK HEATHER L 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 Ot 256.4 POLYCYSTIC OVARIES 02/13/2018 JENNIFER NGUYENRICIA L 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 Ot 268.9 VITAMIN D DEFICIENCY NOS 02/13/2018 JEFF NGUYENIA L 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 Ot 780.60 FEVER, UNSPECIFIED 02/13/2018 JEFF NGUYENIA L 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 Ot 780.93 MEMORY LOSS 02/13/2018 JEFF NGUYENIA L 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 Ot 784.0 HEADACHE 02/13/2018 DIEGO BLANCO, JUSTIN L Ot 088.81 02/13/2018 DIEGO BLANCO, JUSTIN L Ot V58.62 02/16/2018 ALICIA CROOK MD ([facility]) Ot M25.561 PAIN IN RIGHT KNEE 02/16/2018 ALICIA CROOK MD ([facility]) Ot M51.36 OTHER INTERVERTEBRAL DISC DEGENERATION, 02/16/2018 ALICIA CROOK MD ([facility]) Ot Z02.71 ENCOUNTER FOR DISABILITY DETERMINATION 02/16/2018 ALICIA CROOK MD ([facility]) Ot Z90.49 ACQUIRED ABSENCE OF OTHER SPECIFIED PART 05/25/2018 HEATHER NGUYEN 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 Ot 112.9 CANDIDIASIS SITE NOS 05/25/2018 HEATHER NGUYEN 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 Ot 244.9 HYPOTHYROIDISM NOS 05/25/2018 HEATHER NGUYEN 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 Ot 256.4 POLYCYSTIC OVARIES 05/25/2018 HEATHER NGUYEN 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 Ot 268.9 VITAMIN D DEFICIENCY NOS 05/25/2018 HEATHRE NGUYEN 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 Ot 780.60 FEVER, UNSPECIFIED 05/25/2018 HEATHER NGUYEN L 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 Ot 780.93 MEMORY LOSS 05/25/2018 HEATHER NGUYEN 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 Ot 784.0 HEADACHE 05/25/2018 JUSTIN CORTEZ MD L Ot 088.81 05/25/2018 JUSTIN CORTEZ MD Ot V58.62 05/25/2018 ALICIA CROOK MD ([facility]) Ot M25.561 PAIN IN RIGHT KNEE 05/25/2018 ALICIA CROOK MD ([facility]) Ot M51.36 OTHER INTERVERTEBRAL DISC DEGENERATION, 05/25/2018 ALICIA CROOK MD ([facility]) Ot Z02.71 ENCOUNTER FOR DISABILITY DETERMINATION 05/25/2018 ALICIA CROOK MD ([facility]) Ot Z90.49 ACQUIRED ABSENCE OF OTHER SPECIFIED PART 06/30/2018 HEATHER NGUYEN 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 Ot D35.2 BENIGN NEOPLASM OF PITUITARY GLAND 06/30/2018 HEATHER NGUYEN 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 Ot 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, UNSPECIFIED 06/30/2018 HEATHER NGUYEN 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 Ot Z00.01 ENCOUNTER FOR GENERAL ADULT MEDICAL EXAM 07/02/2018 HEATHER NGUYEN 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 Ot G61.9 INFLAMMATORY POLYNEUROPATHY, UNSPECIFIED 07/02/2018 HEATHER NGUYEN 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 Ot M51.25 OTHER INTERVERTEBRAL DISC DISPLACEMENT, 07/02/2018 HEATHER NGUYEN 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 Ot M51.35 OTHER INTERVERTEBRAL DISC DEGENERATION, 07/02/2018 HEATHER NGUYEN L 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 Ot 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, THORACOLUMBAR REGION 07/02/2018 HEATHER NGUYEN 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 Ot 112.9 CANDIDIASIS SITE NOS 07/02/2018 HEATHER NGUYEN 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 Ot 244.9 HYPOTHYROIDISM NOS 07/02/2018 HEATHER NGUYEN 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 Ot 256.4 POLYCYSTIC OVARIES 07/02/2018 NGUYENHEATHER SUBRAMANIAN 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 Ot 268.9 VITAMIN D DEFICIENCY NOS 07/02/2018 HEATHER NGUYEN 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 Ot 780.60 FEVER, UNSPECIFIED 07/02/2018 NGUYENHEATHER SUBRAMANIAN 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 Ot 780.93 MEMORY LOSS 07/02/2018 NGUYENHEATHER Jesús 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 Ot 784.0 HEADACHE 07/02/2018 JUSTIN CORTEZ MD Ot 088.81 07/02/2018 JUSTIN CORTEZ MD Ot V58.62 07/02/2018 ALICIA CROOK MD ([facility]) Ot M25.561 PAIN IN RIGHT KNEE 07/02/2018 ALICIA CROOK MD ([facility]) Ot M51.36 OTHER INTERVERTEBRAL DISC DEGENERATION, 07/02/2018 ALICIA CROOK MD ([facility]) Ot Z02.71 ENCOUNTER FOR DISABILITY DETERMINATION 07/02/2018 ALICIA CROOK MD ([facility]) Ot Z90.49 ACQUIRED ABSENCE OF OTHER SPECIFIED PART 07/02/2018 PATRICKHEATHER 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 Ot D35.2 BENIGN NEOPLASM OF PITUITARY GLAND 07/02/2018 PATRICK HEATHER Espinosa 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 Ot 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, UNSPECIFIED 07/02/2018 PATRICK HEATHER Espinosa 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 Ot Z00.01 ENCOUNTER FOR GENERAL ADULT MEDICAL EXAM 07/02/2018 PATRICK HEATHER Jesús 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 Ot G61.9 INFLAMMATORY POLYNEUROPATHY, UNSPECIFIED 07/02/2018 HEATHER NGUYEN 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 Ot M51.25 OTHER INTERVERTEBRAL DISC DISPLACEMENT, 07/02/2018 PATRICK HEATHER L 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 Ot M51.35 OTHER INTERVERTEBRAL DISC DEGENERATION, 07/02/2018 HEATHER NGUYEN 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 Ot 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, THORACOLUMBAR REGION 07/02/2018 IVONNE NGUYEN DO Ot G61.9 INFLAMMATORY POLYNEUROPATHY, UNSPECIFIED 07/02/2018 IVONNE NGUYEN DO Ot M25.80 OTHER SPECIFIED JOINT DISORDERS, UNSPECI 07/02/2018 IVONNE NGUYEN DO Ot M47.812 SPONDYLOSIS W/O MYELOPATHY OR RADICULOPA 07/08/2018 IVONNE NGUYEN DO Ot G61.9 INFLAMMATORY POLYNEUROPATHY, UNSPECIFIED 07/08/2018 IVONNE NGUYEN DO Ot M25.80 OTHER SPECIFIED JOINT DISORDERS, UNSPECI 07/08/2018 IVONNE NGUYEN DO Ot M47.812 SPONDYLOSIS W/O MYELOPATHY OR RADICULOPA 07/09/2018 HEATHER NGUYEN 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 Ot G61.9 INFLAMMATORY POLYNEUROPATHY, UNSPECIFIED 07/09/2018 JENNIFER NGUYENRICIA L 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 Ot M51.25 OTHER INTERVERTEBRAL DISC DISPLACEMENT, 07/09/2018 JENNIFER NGUYENRICIA L 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 Ot M51.35 OTHER INTERVERTEBRAL DISC DEGENERATION, 07/09/2018 JEFF NGUYENIA Jesús 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 Ot 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, THORACOLUMBAR REGION 07/09/2018 JEFF NGUYENIA Jesús 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 Ot D35.2 BENIGN NEOPLASM OF PITUITARY GLAND 07/09/2018 JEFF NGUYENIA Jesús 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 Ot 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, UNSPECIFIED 07/09/2018 JEFF NGUYENIA Jesús 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 Ot Z00.01 ENCOUNTER FOR GENERAL ADULT MEDICAL EXAM 07/16/2018 IVONNE NGUYEN DO, Ot G61.9 INFLAMMATORY POLYNEUROPATHY, UNSPECIFIED 07/16/2018 IVONNE NGUYEN DO Ot M25.80 OTHER SPECIFIED JOINT DISORDERS, UNSPECI 07/16/2018 IVONNE NGUYEN DO Ot M47.812 SPONDYLOSIS W/O MYELOPATHY OR RADICULOPA 07/22/2018 JUAN MIGUEL Ot M25.5 62 PAIN IN LEFT KNEE 07/22/2018 JUAN MIGUEL Ot M76.6 1 ACHILLES TENDINITIS, RIGHT LEG 08/05/2018 JUAN MIGUEL Ot M25.5 62 PAIN IN LEFT KNEE 08/05/2018 JUAN MIGUEL Ot M76.6 1 ACHILLES TENDINITIS, RIGHT LEG 08/07/2018 HEATHER NGUYEN 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 Ot G61.9 INFLAMMATORY POLYNEUROPATHY, UNSPECIFIED 08/07/2018 JEFF NGUYENIA L 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 Ot M51.25 OTHER INTERVERTEBRAL DISC DISPLACEMENT, 08/07/2018 JENNIFER NGUYENRICIA Jesús 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 Ot M51.35 OTHER INTERVERTEBRAL DISC DEGENERATION, 08/07/2018 PATRICK HEATHER Jesús 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 Ot 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, THORACOLUMBAR REGION 09/03/2018 JUAN MIGUEL Ot M25.5 62 PAIN IN LEFT KNEE 09/03/2018 JUAN MIGUEL Ot M76.6 1 ACHILLES TENDINITIS, RIGHT LEG 09/11/2018 JUAN MIGUEL Ot M25.5 62 PAIN IN LEFT KNEE 09/11/2018 JUAN MIGUEL Ot M76.6 1 ACHILLES TENDINITIS, RIGHT LEG 10/09/2018 ANGELA ROBERTS DO Ot M54.6 PAIN IN THORACIC SPINE 10/21/2018 ANGELA ROBERTS DO Ot M54.6 PAIN IN THORACIC SPINE 03/30/2019 YANNICK BLANCO, WATSON Ot R22.1 LOCALIZED SWELLING, MASS AND LUMP, NECK 04/02/2019 PATRICK HEATHER L 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 Ot 112.9 CANDIDIASIS SITE NOS 04/02/2019 PATRICK HEATHER L 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 Ot 244.9 HYPOTHYROIDISM NOS 04/02/2019 PATRICK HEATHER L 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 Ot 256.4 POLYCYSTIC OVARIES 04/02/2019 PATRICK HEATHER L 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 Ot 268.9 VITAMIN D DEFICIENCY NOS 04/02/2019 PATRICK HEATHER L 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 Ot 780.60 FEVER, UNSPECIFIED 04/02/2019 PATRICK HEATHER L 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 Ot 780.93 MEMORY LOSS 04/02/2019 PATRICK HEATHER L 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 Ot 784.0 HEADACHE 04/02/2019 JUSTIN CORTEZ MD Ot 088.81 04/02/2019 JUSTIN CORTEZ MD Ot V58.62 04/02/2019 ALICIA CROOK MD (Nicole) Ot M25.561 PAIN IN RIGHT KNEE 04/02/2019 ALICIA CROOK MD (Nicole) Ot M51.36 OTHER INTERVERTEBRAL DISC DEGENERATION, 04/02/2019 ALICIA CROOK MD (ZURDO) Ot Z02.71 ENCOUNTER FOR DISABILITY DETERMINATION 04/02/2019 ALICIA CROOK MD (U) Ot Z90.49 ACQUIRED ABSENCE OF OTHER SPECIFIED PART 04/02/2019 JEFF NGUYENIA L 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 Ot D35.2 BENIGN NEOPLASM OF PITUITARY GLAND 04/02/2019 HEATHER NGUYEN 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 Ot 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, UNSPECIFIED 04/02/2019 HEATHER NGUYEN 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 Ot Z00.01 ENCOUNTER FOR GENERAL ADULT MEDICAL EXAM 04/02/2019 NGUYENHEATHER SUBRAMANIAN 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 Ot G61.9 INFLAMMATORY POLYNEUROPATHY, UNSPECIFIED 04/02/2019 PATRICK HEATHER Espinosa 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 Ot M51.25 OTHER INTERVERTEBRAL DISC DISPLACEMENT, 04/02/2019 PATRICK HEATHER Espinosa 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 Ot M51.35 OTHER INTERVERTEBRAL DISC DEGENERATION, 04/02/2019 PATRICK HEATHER Espinosa 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 Ot 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2 BENIGN NEOPLASM OF PITUITARY GLAND 04/08/2019 WATSON LANIER MD, Ot E03.9 HYPOTHYROIDISM, UNSPECIFIED 04/08/2019 WATSON LANIER MD, Ot E28.2 POLYCYSTIC OVARIAN SYNDROME 04/08/2019 WATSON LANIER MD, Ot E55.9 VITAMIN D DEFICIENCY, UNSPECIFIED 04/08/2019 WATSON LANIER MD, Ot F17.21 0 NICOTINE DEPENDENCE, CIGARETTES, UNCOMPL 04/08/2019 WATSON LANIER MD, Ot F32.9 MAJOR DEPRESSIVE DISORDER, SINGLE EPISOD 04/08/2019 WATSON LANIER MD, Ot F41.9 ANXIETY DISORDER, UNSPECIFIED 04/08/2019 WATSON LANIER MD Ot M19.91 PRIMARY OSTEOARTHRITIS, UNSPECIFIED SITE 04/08/2019 WATSON LANIER MD Ot M79.7 FIBROMYALGIA 04/08/2019 WATSON LANIER MD, Ot Z11.2 ENCOUNTER FOR SCREENING FOR OTHER BACTER 04/08/2019 WATSON LANIER MD, Ot Z79.89 9 OTHER CUFF FOLDER (CURRENT) DRUG THERAPY 04/14/2019 WATSON LANIER MD, Ot C82.11 FOLLICULAR LYMPHOMA GRADE II, NODES OF H 04/14/2019 WATSON LANIER MD, Ot D35.2 BENIGN NEOPLASM OF PITUITARY GLAND 04/14/2019 WATSON LANIER MD, Ot E03.9 HYPOTHYROIDISM, UNSPECIFIED 04/14/2019 WATSON LANIER MD, Ot E28.2 POLYCYSTIC OVARIAN SYNDROME 04/14/2019 WATSON LANIER MD, Ot E55.9 VITAMIN D DEFICIENCY, UNSPECIFIED 04/14/2019 WATSON LANIER MD, Ot F17.21 0 NICOTINE DEPENDENCE, CIGARETTES, UNCOMPL 04/14/2019 WATSON LANIER MD Ot F32.9 MAJOR DEPRESSIVE DISORDER, SINGLE EPISOD 04/14/2019 WATSON LANIER MD, Ot F41.9 ANXIETY DISORDER, UNSPECIFIED 04/14/2019 WATSON LANIER MD, Ot M19.91 PRIMARY OSTEOARTHRITIS, UNSPECIFIED SITE 04/14/2019 WATSON LANIER MD, Ot M79.7 FIBROMYALGIA 04/14/2019 WATSON LANIER MD, Ot Z11.2 ENCOUNTER FOR SCREENING FOR OTHER BACTER 04/14/2019 WATSON LANIER MD, Ot Z79.89 9 OTHER SENIOR LIVING (CURRENT) DRUG THERAPY 04/22/2019 WATSON LANIER MD Ot R59.0 LOCALIZED ENLARGED LYMPH NODES 04/23/2019 EDYTA SEGUNDO MD, Ot C85. 11 UNSP B-CELL LYMPHOMA, LYMPH NODES OF HEA 04/27/2019 EDYTA SEGUNDO MD, Ot C82. 31 FOLICLAR LYMPHOMA GRADE IIIA, NODES OF H 04/27/2019 EDYTA SEGUNDO MD, Ot C85. 90 NON-HODGKIN LYMPHOMA, UNSPECIFIED, UNSPE 04/27/2019 EDYTA SEGUNDO MD, Ot E03. 9 HYPOTHYROIDISM, UNSPECIFIED 04/27/2019 EDYTA SEGUNDO MD Ot E11. 9 TYPE 2 DIABETES MELLITUS WITHOUT COMPLIC 04/27/2019 EDYTA SEGUNDO MD Ot F41. 9 ANXIETY DISORDER, UNSPECIFIED 04/27/2019 EDYTA SEGUNDO MD Ot M79. 7 FIBROMYALGIA 04/27/2019 JUSTIN CORTEZ MD Ot 088.81 04/27/2019 JUSTIN CORTEZ MD Ot V58.62 Procedures Code Description [place] [address] TB T EST INTRADERMAL 07/08/2012 Results Test Result Range Methicillin resistant Staphylococcus aur eus (MRSA) screening culture - 04/08/19 09:40 Methicillin resistant Staphylococcus aureus (MRSA) scr eening culture NEG NRG Acute hepatitis panel - 04/22/19 12:40 HEPATITIS A ANTIBODY IGM Non-Reactive N on-Reactive HEPATITIS B CORE JASMIN IGM Non-Reactive N on-Reactive Confirmatory quantitative serum or plasm a hepatitis B virus surface antigen measurement Non-Reactive Non-Reactive Serum hepatitis C virus antibody detection Non-Lou ctive Non-Reactive Encounters ACCT No. Visit Date/Time Discharge Status Pt. Type Provider Facility Loc./Unit Complaint [id number] 12/16/2011 14:48:00 12/16/2011 23:59:5 9 CLS Outpatient [id number] 07/08/2012 11:16:00 Document Registration [id number] 04/27/2019 06:35:00 12:23:00 DIS Outpatient WATSON LANIER MD Via [facility] PREOP LYMPHOMA [id number] 04/22/2019 12:35:00 23:59:59 CLS Outpatient EDYTA SEGUNDO MD [facility] ONC [id number] 04/20/2019 12:17:00 23:59:59 CLS Outpatient EDYTA SEGUNDO MD [facility] RAD B CELL LYMPHOMA [id number] 04/08/2019 09:23:00 13:30:00 DIS Outpatient WATSON LANIER MD [facility] SDC LYMPHADENOPATHY [id number] 04/06/2019 06:37:00 10:04:00 DIS Outpatient WATSON LANIER MD [facility] PREOP LAPAROSCOPIC CHOLECYSTE CTOMY [id number] 04/02/2019 12:18:00 23:59:59 CLS Outpatient WATSON LANIER MD [facility] RAD LT NECK MASS [id number] 03/26/2019 08:44:00 23:59:59 CLS Outpatient WATSON LANIER MD [facility] RAD LEFT NECK MASS POSS LYM PHADENOPATHY [id number] 10/21/2018 10:10:00 11:10:00 DIS Outpatient ANGELA ROBERTS DO [facility] REHAB THORACIC MYOFAS CIAL PAIN [id number] 09/10/2018 11:45:00 17:00:00 DIS Outpatient JUAN MIGUEL [facility] REHAB L KNEE PFS;R ANKLE ACHI LLES TENDONITIS [id number] 07/02/2018 09:09:00 23:59:59 CLS Outpatient IVONNE NGUYEN DO [facility] RAD INFLAMMATORY PO LYNEUROPATHY [id number] 07/01/2018 14:30:00 23:59:59 CLS Outpatient HEATHER NGUYENP [facility] RAD INFLAMMATORY PO LYNEUROPATHY [id number] 05/27/2018 08:18:00 23:59:59 CLS Outpatient HEATHER NGUYEN 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 [facility] RAD PITUITARY MICRO ADENOMA [id number] 02/13/2018 09:47:00 23:59:59 CLS Outpatient ALICIA CROOK MD (DDU) [facility] RAD DDS [id number] 11/10/2014 00:25:00 23:59:59 CLS Preadmit JUSTIN CORTEZ MD [facility] LAB BORRELIOSIS,MEDICATION MONITORING [id number] 10/19/2014 09:32:00 00:01:00 DIS Outpatient JUSTIN CORTEZ MD [facility] LAB BORRELIOSIS,MEDICATION MONITORING [id number] 10/27/2014 14:29:00 23:59:59 CLS Outpatient HEATHER NGUYEN [facility] RAD HEADACHE,MEMORY LOSS,PCOS [id number] 05/03/2014 10:07:00 00:01:00 DIS Outpatient JUSTIN CORTEZ MD [facility] LAB [id number] 05/11/2014 07:48:00 23:59:59 CLS Outpatient JUSTIN CORTEZ MD [facility] LAB [id number] 01/17/2014 10:47:00 00:01:00 DIS Outpatient JUSTIN CORTEZ MD [facility] LAB [id number] 01/19/2014 10:30:00 23:59:59 CLS Outpatient JUSTIN CORTEZ MD [facility] LAB [id number] 08/16/2013 09:12:00 014 23:59:59 CLS Outpatient JUSTIN CORTEZ MD [facility] LAB [id number] 06/09/2013 13:51:00 014 23:59:59 CLS Outpatient HEATHER NGUYEN [facility] RAD [id number] 06/08/2013 10:16:00 23:59:59 CLS Outpatient JUSTIN CORTEZ MD [facility] LAB [id number] 05/04/2013 09:38:00 014 23:59:59 CLS Outpatient JUSTIN CORTEZ MD [facility] LAB [id number] 05/04/2013 09:33:00 014 23:59:59 CLS Outpatient HEATHER NGUYEN [facility] LAB [id number] 04/28/2019 08:00:00 P WATSON Saucedo MD [facility] SDC LYMPHOMA [id number] 04/25/2014 08:02:00 Document Registration [id number] 04/20/2014 06:22:00 Document Registration [id number] 03/11/2012 07:53:00 Document Registration
[2019-04-28] MEDS ORDERED: LACTATED RINGERS 1,000 ML IV PRN (07:38)
[2019-04-28] MEDS ORDERED: ceFAZolin 2 GM IV Premixed 50 ML IV ONE (07:45)
[2019-04-28] MEDS ORDERED: ALPR0.5T7 PO (08:27)
[2019-04-28] MEDS ORDERED: PROPOFOL INJECTION 50 ML IV ONE ×2 (08:32→10:23)
[2019-04-28] MEDS ORDERED: MIDAZOLAM 2 MG/2 ML (VERSED) VIAL ONE (08:32)
[2019-04-28] MEDS ORDERED: fentaNYL INJECTION 100 MCG/2 ML AMP ONE (08:32)
[2019-04-28] MEDS ORDERED: HEParin (CENTRAL IV FLUSH) 500 UNIT/5 ML SYR ONE (09:30)
[2019-04-28] MEDS ORDERED: BUP/EPI 0.5% 1:200,000 (SENSORCAINE) 30 ML VIAL ONE (09:31)
[2019-04-28] MEDS ORDERED: 0.9% SODIUM CHLORIDE PF INJ 20 ML VIAL ONE (09:31)
--- NOTE | 2019-04-28 09:48 | Progress Note-Pre Operative ---
Pre-Operative Progress Note H&P Reviewed The H&P was reviewed, patient examined and no changes noted. Date Seen by Provider: Apr 28, 2019 Time Seen by Provider: 09:00 Date H&P Reviewed: Apr 28, 2019 Time H&P Reviewed: 09:00 Pre-Operative Diagnosis: lymphoma WATSON LANIER MD Apr 28, 2019 09:48
--- NOTE | 2019-04-28 09:48 | Conscious Sedation/ASA ---
Conscious Sedation Pre-Proced Time 09:00 ASA Score 2 For ASA 3 and 4: Consider anesthesia and medical clearance. Also, for patients with a history of failed moderate sedation consider anesthesia. Airway Lungs Heart ASA score ASA 1: a normal healthy patient ASA 2: a patient with a mild systemic disease (mid diabetes, controlled hypertension, obesity ASA 3: a patient with a severe systemic disease that limits activity (angina, COPD, prior Myocardial infarction) ASA 4: a patient with an incapacitating disease that is a constant threat to life (CHF, renal failure) ASA 5: a moribund patient not expected to survive 24 hrs. (ruptured aneurysm) ASA 6: a declared brain- patient whose organs are being harvested. For emergent operations, add the letter E after the classification Mallampati Classification Grade 2 Sedation Plan Analgesia, Amnesia, Plan communicated to team members, Discussed options with patient/fam, Discussed risks with patient/fam The patient is an appropriate candidate to undergo the planned procedure, sedation, and anesthesia. The patient immediately re-assessed prior to indication. WATSON LANIER MD Apr 28, 2019 09:48
[2019-04-28] MEDS ORDERED: HYDR15SO6 PO (09:49)
--- NOTE | 2019-04-28 09:51 | Discharge Inst-Surgical ---
D/C Lap Instructions-KIDO New, Converted, or Re-Newed RX: RX on Chart Follow Up prn Activity as tolerated may access and use port at any time. Regular Diet Symptoms to Report: Fever over 101 degree F, Nausea/Vomiting Infection Signs and Symptoms to report: Increased redness, Foul odor of wound, Increased drainage Bathing instructions: May shower Operative Area Clean/Dry; Keep incision clean/dry If any problems/questions: Contact your physician or go to Emergency Room WATSON LANIER MD Apr 28, 2019 09:51
[2019-04-28] MEDS ORDERED: ceFAZolin 2 GM IV Premixed 50 ML ONE (09:53)
[2019-04-28] MEDS ORDERED: ONDANSETRON 4 MG/2 ML (SDV) Z0FRAN IVP PRN ×2 (10:00→11:00)
[2019-04-28] MEDS ORDERED: morphine INJ 10 MG/ML 1ML (SYR OR VIAL) IVP PRN ×2 (10:00)
[2019-04-28] MEDS ORDERED: ACETAMINOPHEN 325 MG TABLET PO PRN (10:00)
[2019-04-28] MEDS ORDERED: HYDROcodone/APAP 5 MG/325 MG (LORTAB) TAB PO PRN (10:00)
--- NOTE | 2019-04-28 10:59 | Progress Note-Post Operative ---
Post-Operative Progess Note Surgeon (s)/Clinical Technologist (s) Surgeon AWTSON LANIER MD Clinical Technologist: none Pre-Operative Diagnosis lymphoma Post-Operative Diagnosis same Procedure & Operative Findings Date of Procedure 04/28/19 Procedure Performed/Findings groshong implantable catheter under flouroscopy. Anesthesia Type mac with local Estimated Blood Loss Estimated blood loss (mL): minimal Specimens/Packing Specimens Removed none WATSON LANIER MD Apr 28, 2019 10:59
[2019-04-28] MEDS ORDERED: fentaNYL INJECTION 100 MCG/2 ML AMP IVP ONE (11:00)
[2019-04-28] MEDS ORDERED: morphine INJ 10 MG/ML 1ML (SYR OR VIAL) IVP ONE (11:00)
[2019-04-28] MEDS ORDERED: MEPERIDINE (DEMEROL) INJ 50 MG/ML IVP ONE (11:00)
--- NOTE | 2019-04-28 11:20 | NUR ---
TO AMB SURG FROM PAR PER CART. ALERT, DENIES COMPLAINTS. FOLDED 2X2 GAUZE WITH OPSITE D/I TO LEFT UPPER CHEST SURGICAL SITE, ICE PACK ON. PO FLUIDS PROVIDED.
--- NOTE | 2019-04-28 11:32 | Diagnostic Imaging Report ---
INDICATION: Groshong placement. Time of exam 11:02 AM A left chest wall Port has tip overlying the SVC. Lungs appear to be clear. No pneumothorax is detected. IMPRESSION: Groshong catheter placement. No pneumothorax is detected. Dictated by: Dictated on workstation # [id number]
--- NOTE | 2019-04-28 11:49 | Diagnostic Imaging Report ---
INDICATION: Groshong catheter placement. Fluoroscopy was provided in the OR during Groshong catheter placement. 95 seconds of fluoroscopic time was utilized. A single image was obtained demonstrating Groshong entering from the left with tip overlying SVC right atrial junction. IMPRESSION: Fluoroscopy for Groshong catheter placement. Dictated by: Dictated on workstation # [id number]
--- NOTE | 2019-04-28 11:50 | NUR ---
NO CHANGE IN PAIN OR SITE ASSESSMENTS. ALERT, CHEERFUL, TAKING PO FLUIDS WITHOUT PROBLEM. REQUESTING DISMISSAL.
--- NOTE | 2019-04-28 14:01 | OPERATIVE REPORT ---
DATE OF SERVICE: 04/28/2019 PREOPERATIVE DIAGNOSIS: Lymphoma. POSTOPERATIVE DIAGNOSIS: Lymphoma. PROCEDURE: Placement of left subclavian Groshong implantable catheter under fluoroscopy. SURGEON: Watson Lanier MD. ANESTHESIA: Monitored anesthesia care with local. ESTIMATED BLOOD LOSS: Minimal. FINDINGS: Catheter tip at superior vena cava - right atrial junction. DISPOSITION: The patient tolerated the procedure well. INDICATIONS: The patient is a 28-year-old female who developed lymphadenopathy and was worked up and found to have a [place] spotted fever approximately 3 years ago and was treated appropriately. Over time, she improved; however, she did have persistence of a lymph node in the left neck, which was verified on CT scan. This was biopsied just recently and consistent with a classic B cell lymphoma. She will undergo chemotherapy and will need a Groshong implantable catheter. DESCRIPTION OF PROCEDURE: The patient was brought to the operating room, laid supine on the table. After adequate IV pain and sedated medications and monitored anesthesia care, the chest and neck were prepped and draped in standard surgical fashion. A 1% lidocaine with epinephrine was used to anesthetize overlying skin in the left subclavian region. The left subclavian vein was then cannulated with drawing of venous blood. The guidewire was then inserted under fluoroscopy. The cannulating needle removed and a skin incision made using a 15-blade. The dilator and sheath were then placed under direct visualization and the guidewire and dilator were removed and the catheter was placed under direct visualization until the catheter tip was at the superior vena cava - right atrial junction. The sheath was then removed and the inner wire within the catheter cut down to size and port placed onto the catheter. The skin incision was then extended laterally using a 15 blade and a plane was then created between the subcutaneous fat and the anterior pectoralis fascia using electrocautery as well as blunt dissection. The port was then placed into the reservoir and sutured to the anterior pectoralis fascia using interrupted 3-0 Vicryl sutures. The subcutaneous tissue was then reapproximated using 3-0 Vicryl interrupted sutures and the skin was closed using 4-0 Monocryl running subcuticular suture. Wound was then cleaned and covered with Dermabond. The patient tolerated the procedure well. We will get a post-procedure chest x-ray and once confirmation of placement, the catheter may be accessed and used any time. Job ID: [id number] DocumentID: [id number] Dictated Date: 04/28/2019 10:48:43 Conservation Officer Date: 04/28/2019 14:00:26 Dictated By: WATSON LANIER MD MTDD
--- NOTE | 2019-05-01 12:34 | Anesthesia-General Post-Op ---
MAC Patient Condition Mental Status/LOC: Same as Preop Cardiovascular: Satisfactory Nausea/Vomiting: Absent Respiratory: Satisfactory Pain: Controlled Complications: Absent Post Op Complications Complications None Follow Up Care/Instructions Patient Instructions postop addendum.. seen on 04-28-19 at 1115 Anesthesiology Discharge Order Discharge Order Patient is doing well, no complaints, stable vital signs, no apparent adverse anesthesia problems. No complications reported per nursing. VIELKA SCHULTZ CRNA May 01, 2019 12:34
== END 2019-04-28 12:01 | disposition home or self-care (01) ==
LOC: SDC 07:28
PROVIDERS: ATTEND Surgery
DX: C82.30 Follicular lymphoma grade IIIa, unspecified site (principal); K21.9 Gastro-esophageal reflux disease without esophagitis; M79.7 Fibromyalgia; M19.90 Unspecified osteoarthritis, unspecified site; I95.9 Hypotension, unspecified; E03.9 Hypothyroidism, unspecified; E55.9 Vitamin D deficiency, unspecified; E28.2 Polycystic ovarian syndrome; F41.9 Anxiety disorder, unspecified; F32.9 Major depressive disorder, single episode, unspecified; F17.210 Nicotine dependence, cigarettes, uncomplicated; Z90.49 Acquired absence of other specified parts of digestive tract; Z79.899 Other long term (current) drug therapy; Z90.89 Acquired absence of other organs; Z82.49 Family history of ischemic heart disease and other diseases of the circulatory system; Z83.3 Family history of diabetes mellitus; Z80.49 Family history of malignant neoplasm of other genital organs
CPT/HCPCS: 71045; 84703; 87081

== ENCOUNTER 2019-05-25 10:38 | Outpatient (RCR) | payer BC, MEDICAID ==
[2019-04-22 12:56] LABS: BASOPHILS # (AUTO) 0.1 10^3/uL (0.0-0.1); BASOPHILS % (AUTO) 1 % (0-10); EOSINOPHILS # (AUTO) 0.5 10^3/uL (0.0-0.3); EOSINOPHILS % (AUTO) 5 % (0-10); HEMATOCRIT 43 % (35-52); HEMOGLOBIN 14.7 G/DL (11.5-16.0); LYMPHOCYTES % (AUTO) 19 % (12-44); MEAN CORPUSCULAR HEMOGLOBIN 31 PG (25-34); MEAN CORPUSCULAR HGB CONC 34 G/DL (32-36); MEAN CORPUSCULAR VOLUME 92 FL (80-99); MEAN PLATELET VOLUME 11.1 FL (7.4-10.4); MONOCYTES % (AUTO) 9 % (0-12); NEUTROPHILS % (AUTO) 67 % (42-75); PLATELET COUNT 295 10^3/uL (130-400); RED CELL DISTRIBUTION WIDTH 12.8 % (10.0-14.5); WHITE BLOOD COUNT 10.4 10^3/uL (4.3-11.0)
[2019-04-22 13:18] LABS: ALANINE AMINOTRANSFERASE 14 U/L (0-55); ALBUMIN 4.6 GM/DL (3.2-4.5); ALKALINE PHOSPHATASE 49 U/L (40-136); BILIRUBIN,TOTAL 0.6 MG/DL (0.1-1.0); BUN/CREATININE RATIO 13; CALCIUM 9.2 MG/DL (8.5-10.1); CARBON DIOXIDE 27 MMOL/L (21-32); CHLORIDE 106 MMOL/L (98-107); CREATININE SERUM 0.96 MG/DL (0.60-1.30); GFR ESTIMATED > 60; GLUCOSE 91 MG/DL (70-105); POTASSIUM 3.8 MMOL/L (3.6-5.0); SODIUM 140 MMOL/L (135-145); TOTAL PROTEIN 7.3 GM/DL (6.4-8.2)
[2019-04-22 23:22] LABS: HEPATITIS C ANTIBODY C Non-Reactive (Non-Reactive)
[2019-05-11 14:18] LABS: BASOPHILS # (AUTO) 0.1 10^3/uL (0.0-0.1); BASOPHILS % (AUTO) 1 % (0-10); EOSINOPHILS # (AUTO) 0.5 10^3/uL (0.0-0.3); EOSINOPHILS % (AUTO) 9 % (0-10); HEMATOCRIT 42 % (35-52); HEMOGLOBIN 14.1 G/DL (11.5-16.0); LYMPHOCYTES # (AUTO) 0.5 X 10^3 (1.0-4.0); LYMPHOCYTES % (AUTO) 8 % (12-44); MEAN CORPUSCULAR HEMOGLOBIN 32 PG (25-34); MEAN CORPUSCULAR HGB CONC 34 G/DL (32-36); MEAN CORPUSCULAR VOLUME 94 FL (80-99); MEAN PLATELET VOLUME 10.7 FL (7.4-10.4); MONOCYTES # (AUTO) 0.8 X 10^3 (0.0-1.0); MONOCYTES % (AUTO) 13 % (0-12); NEUTROPHILS # (AUTO) 4.3 X 10^3 (1.8-7.8); NEUTROPHILS % (AUTO) 69 % (42-75); PLATELET COUNT 253 10^3/uL (130-400); RED CELL DISTRIBUTION WIDTH 12.8 % (10.0-14.5); WHITE BLOOD COUNT 6.1 10^3/uL (4.3-11.0)
[2019-05-11 14:39] LABS: BUN/CREATININE RATIO 12; CARBON DIOXIDE 27 MMOL/L (21-32); CHLORIDE 103 MMOL/L (98-107); CREATININE SERUM 1.07 MG/DL (0.60-1.30); GFR ESTIMATED > 60; GLUCOSE 81 MG/DL (70-105); SODIUM 140 MMOL/L (135-145)
[2019-05-18 09:10] LABS: BASOPHILS # (AUTO) 0.1 10^3/uL (0.0-0.1); BASOPHILS % (AUTO) 1 % (0-10); EOSINOPHILS # (AUTO) 0.4 10^3/uL (0.0-0.3); EOSINOPHILS % (AUTO) 6 % (0-10); HEMATOCRIT 44 % (35-52); HEMOGLOBIN 14.6 G/DL (11.5-16.0); LYMPHOCYTES # (AUTO) 0.7 X 10^3 (1.0-4.0); LYMPHOCYTES % (AUTO) 8 % (12-44); MEAN CORPUSCULAR HEMOGLOBIN 31 PG (25-34); MEAN CORPUSCULAR HGB CONC 34 G/DL (32-36); MEAN CORPUSCULAR VOLUME 94 FL (80-99); MEAN PLATELET VOLUME 10.7 FL (7.4-10.4); MONOCYTES # (AUTO) 1.2 X 10^3 (0.0-1.0); MONOCYTES % (AUTO) 15 % (0-12); NEUTROPHILS # (AUTO) 5.5 X 10^3 (1.8-7.8); NEUTROPHILS % (AUTO) 71 % (42-75); PLATELET COUNT 247 10^3/uL (130-400); WHITE BLOOD COUNT 7.8 10^3/uL (4.3-11.0)
[2019-05-18 09:20] LABS: CHLORIDE 106 MMOL/L (98-107); POTASSIUM 4.4 MMOL/L (3.6-5.0); SODIUM 140 MMOL/L (135-145)
[2019-05-18 09:21] LABS: GLUCOSE 91 MG/DL (70-105)
[2019-05-18 09:23] LABS: CARBON DIOXIDE 23 MMOL/L (21-32)
[2019-05-18 09:25] LABS: CREATININE SERUM 0.98 MG/DL (0.60-1.30); GFR ESTIMATED > 60
[2019-05-18 09:26] LABS: BUN/CREATININE RATIO 9
[~2019-05-25] VITALS: Ht 167.6 cm; Wt 80.3 kg
[~2019-05-25 10:38] MED LIST changes: +ACETAMINOPHEN 325 MG TAB (TYLENOL) CANCER CTR PO PRN; +ALPR0.5T7 PO; +BENDAMUSTINE HCL IV SCH; +FAMOTIDINE 20MG/2ML IV (CANCER CTR) IV SCH; +HYDR15SO6 PO; +NS IV 1000 ML (CANCER CTR) IV SCH; +NS IV 500 ML (CANCER CENTER) 500 ML ONE; +NS IV SCH; +ONDANSETRON MDV (CANCER CENTER 16 MG, DEXAMETHASONE INJECTION 10 MG in NS (IVPB) CANCER... IV SCH; +PALONOSETRON HCL 0.25 MG, DEXAMETHASONE INJECTION 10 MG in NS (IVPB) CANCER CENTER 50 ML IV SCH; +diphenhydrAMINE 25 MG TAB (BENADRYL) CANCER CENTER PO SCH; +diphenhydrAMINE 50 MG/ML INJ (CANCER CENTER) ONE; +riTUXimab 500 MG, riTUXimab FOR IV INJ CONC 200 MG in NS (IVPB) CANCER CENTER ONLY 150 ML IV SCH
[2019-05-25 11:06] LABS: BASOPHILS # (AUTO) 0.1 10^3/uL (0.0-0.1); BASOPHILS % (AUTO) 2 % (0-10); EOSINOPHILS # (AUTO) 0.5 10^3/uL (0.0-0.3); EOSINOPHILS % (AUTO) 8 % (0-10); HEMATOCRIT 43 % (35-52); HEMOGLOBIN 14.4 G/DL (11.5-16.0); LYMPHOCYTES # (AUTO) 0.7 X 10^3 (1.0-4.0); LYMPHOCYTES % (AUTO) 12 % (12-44); MEAN CORPUSCULAR HEMOGLOBIN 31 PG (25-34); MEAN CORPUSCULAR HGB CONC 33 G/DL (32-36); MEAN CORPUSCULAR VOLUME 95 FL (80-99); MEAN PLATELET VOLUME 11.4 FL (7.4-10.4); MONOCYTES # (AUTO) 0.8 X 10^3 (0.0-1.0); MONOCYTES % (AUTO) 13 % (0-12); NEUTROPHILS # (AUTO) 3.9 X 10^3 (1.8-7.8); NEUTROPHILS % (AUTO) 65 % (42-75); PLATELET COUNT 240 10^3/uL (130-400); RED CELL DISTRIBUTION WIDTH 12.9 % (10.0-14.5)
[2019-05-25 11:17] LABS: BUN/CREATININE RATIO 15; CALCIUM 9.1 MG/DL (8.5-10.1); CARBON DIOXIDE 27 MMOL/L (21-32); CHLORIDE 104 MMOL/L (98-107); CREATININE SERUM 0.89 MG/DL (0.60-1.30); GFR ESTIMATED > 60; GLUCOSE 83 MG/DL (70-105); POTASSIUM 4.7 MMOL/L (3.6-5.0); SODIUM 139 MMOL/L (135-145)
== END 2019-05-28 13:06 | disposition home or self-care (01) ==
LOC: ONC 10:38
PROVIDERS: ATTEND Internal Medicine Hematology & Oncology
DX: Z51.11 Encounter for antineoplastic chemotherapy (principal); C85.90 Non-Hodgkin lymphoma, unspecified, unspecified site; C82.31 Follicular lymphoma grade IIIa, lymph nodes of head, face, and neck; F41.9 Anxiety disorder, unspecified; M79.7 Fibromyalgia; E03.9 Hypothyroidism, unspecified; E11.9 Type 2 diabetes mellitus without complications
CPT/HCPCS: 80048; 80053; 80074; 83615; 85025; 96375; 96376; 96409; 96411; 96413; 96415; 99213; 99214; J9312

== ENCOUNTER → 2019-06-29 | Outpatient (CLI) | payer BC, MEDICAID ==
[~2019-06-29] MED LIST changes: -ACETAMINOPHEN 325 MG TAB (TYLENOL) CANCER CTR PO PRN; -BENDAMUSTINE HCL IV SCH; -FAMOTIDINE 20MG/2ML IV (CANCER CTR) IV SCH; -NS IV 1000 ML (CANCER CTR) IV SCH; -NS IV 500 ML (CANCER CENTER) 500 ML ONE; -NS IV SCH; -ONDANSETRON MDV (CANCER CENTER 16 MG, DEXAMETHASONE INJECTION 10 MG in NS (IVPB) CANCER... IV SCH; -PALONOSETRON HCL 0.25 MG, DEXAMETHASONE INJECTION 10 MG in NS (IVPB) CANCER CENTER 50 ML IV SCH; -diphenhydrAMINE 25 MG TAB (BENADRYL) CANCER CENTER PO SCH; -diphenhydrAMINE 50 MG/ML INJ (CANCER CENTER) ONE; -riTUXimab 500 MG, riTUXimab FOR IV INJ CONC 200 MG in NS (IVPB) CANCER CENTER ONLY 150 ML IV SCH
[2019-06-29 10:49] LABS: FREE T4 (FREE THYROXINE) 1.18 NG/DL (0.70-1.48)
== END ==
LOC: LAB 09:46
PROVIDERS: ATTEND Internal Medicine Endocrinology, Diabetes & Metabolism
DX: E03.8 Other specified hypothyroidism (principal)
CPT/HCPCS: 36415; 84439; 84443; 84480

== ENCOUNTER → 2019-07-20 | Outpatient (CLI) | payer BC, MEDICAID ==
--- NOTE | 2019-07-20 14:25 | Diagnostic Imaging Report ---
INDICATION: Follicular lymphoma. Study is performed to evaluate treatment response and restaging. TECHNIQUE: Serum blood glucose level at the time of injection was 92 mg/dL. Patient was administered 13.1 mCi F-18 FDG intravenously in the right antecubital location and PET imaging was performed from the top of skull to mid thighs. Noncontrast CT was also performed for attenuation correction and anatomic correlation. COMPARISON: Correlation is made with prior PET/CT study from 04/20/2019. FINDINGS: There is symmetric activity throughout the brain. Significant response to therapy is identified. Previously noted hypermetabolic lymph nodes along the cervical chains bilaterally is no longer present. No hypermetabolism in the neck is identified. No axillary hypermetabolism is seen on today's study. Mediastinal uptake is no longer visualized. No hilar or mediastinal hypermetabolism is seen. In addition, abnormal areas of hypermetabolism in the abdomen and pelvis are no longer visualized. Specifically, central retroperitoneum as well as the mayco hepatis in portacaval regions are unremarkable. No iliac chain or inguinal hypermetabolism is seen on today's study. IMPRESSION: Significant response to therapy since prior PET/CT study from 04/20/2019. No areas of hypermetabolism are identified on today's exam. Dictated by: Dictated on workstation # [id number]
== END ==
LOC: RAD 08:11
PROVIDERS: ATTEND Internal Medicine Hematology & Oncology
DX: C82.38 Follicular lymphoma grade IIIa, lymph nodes of multiple sites (principal)

== ENCOUNTER 2019-08-25 09:52 | Outpatient (RCR) | payer BC, MEDICAID ==
[2019-06-01 09:31] LABS: BASOPHILS # (AUTO) 0.1 10^3/uL (0.0-0.1); BASOPHILS % (AUTO) 1 % (0-10); EOSINOPHILS # (AUTO) 0.6 10^3/uL (0.0-0.3); EOSINOPHILS % (AUTO) 6 % (0-10); HEMATOCRIT 41 % (35-52); HEMOGLOBIN 13.7 G/DL (11.5-16.0); LYMPHOCYTES # (AUTO) 1.1 X 10^3 (1.0-4.0); LYMPHOCYTES % (AUTO) 12 % (12-44); MEAN CORPUSCULAR HEMOGLOBIN 31 PG (25-34); MEAN CORPUSCULAR HGB CONC 34 G/DL (32-36); MEAN CORPUSCULAR VOLUME 93 FL (80-99); MEAN PLATELET VOLUME 10.5 FL (7.4-10.4); MONOCYTES # (AUTO) 0.9 X 10^3 (0.0-1.0); MONOCYTES % (AUTO) 10 % (0-12); NEUTROPHILS # (AUTO) 6.9 X 10^3 (1.8-7.8); NEUTROPHILS % (AUTO) 72 % (42-75); PLATELET COUNT 235 10^3/uL (130-400); RED CELL DISTRIBUTION WIDTH 13.2 % (10.0-14.5); WHITE BLOOD COUNT 9.6 10^3/uL (4.3-11.0)
[2019-06-01 09:54] LABS: ALANINE AMINOTRANSFERASE 18 U/L (0-55); ALBUMIN 4.1 GM/DL (3.2-4.5); ALKALINE PHOSPHATASE 54 U/L (40-136); BILIRUBIN,TOTAL 0.4 MG/DL (0.1-1.0); BUN/CREATININE RATIO 12; CARBON DIOXIDE 24 MMOL/L (21-32); CHLORIDE 104 MMOL/L (98-107); CREATININE SERUM 0.84 MG/DL (0.60-1.30); GFR ESTIMATED > 60; GLUCOSE 82 MG/DL (70-105); POTASSIUM 4.2 MMOL/L (3.6-5.0); SODIUM 138 MMOL/L (135-145)
[2019-06-08 10:54] LABS: BASOPHILS % (AUTO) 1 % (0-10); EOSINOPHILS # (AUTO) 0.6 10^3/uL (0.0-0.3); EOSINOPHILS % (AUTO) 8 % (0-10); HEMATOCRIT 38 % (35-52); HEMOGLOBIN 12.9 G/DL (11.5-16.0); LYMPHOCYTES # (AUTO) 0.6 X 10^3 (1.0-4.0); LYMPHOCYTES % (AUTO) 7 % (12-44); MEAN CORPUSCULAR HEMOGLOBIN 32 PG (25-34); MEAN CORPUSCULAR HGB CONC 34 G/DL (32-36); MEAN CORPUSCULAR VOLUME 94 FL (80-99); MEAN PLATELET VOLUME 10.3 FL (7.4-10.4); MONOCYTES # (AUTO) 0.7 X 10^3 (0.0-1.0); MONOCYTES % (AUTO) 9 % (0-12); NEUTROPHILS # (AUTO) 5.7 X 10^3 (1.8-7.8); NEUTROPHILS % (AUTO) 76 % (42-75); PLATELET COUNT 223 10^3/uL (130-400); RED CELL DISTRIBUTION WIDTH 13.2 % (10.0-14.5); WHITE BLOOD COUNT 7.5 10^3/uL (4.3-11.0)
[2019-06-08 11:16] LABS: BUN/CREATININE RATIO 18; CALCIUM 8.4 MG/DL (8.5-10.1); CARBON DIOXIDE 23 MMOL/L (21-32); CHLORIDE 105 MMOL/L (98-107); CREATININE SERUM 0.83 MG/DL (0.60-1.30); GFR ESTIMATED > 60; GLUCOSE 87 MG/DL (70-105); POTASSIUM 4.3 MMOL/L (3.6-5.0); SODIUM 137 MMOL/L (135-145)
[2019-06-15 11:25] LABS: BASOPHILS % (AUTO) 1 % (0-10); EOSINOPHILS # (AUTO) 0.5 10^3/uL (0.0-0.3); EOSINOPHILS % (AUTO) 9 % (0-10); HEMATOCRIT 40 % (35-52); HEMOGLOBIN 13.2 G/DL (11.5-16.0); LYMPHOCYTES # (AUTO) 0.8 X 10^3 (1.0-4.0); LYMPHOCYTES % (AUTO) 13 % (12-44); MEAN CORPUSCULAR HEMOGLOBIN 31 PG (25-34); MEAN CORPUSCULAR HGB CONC 33 G/DL (32-36); MEAN CORPUSCULAR VOLUME 93 FL (80-99); MEAN PLATELET VOLUME 10.5 FL (7.4-10.4); MONOCYTES # (AUTO) 0.7 X 10^3 (0.0-1.0); MONOCYTES % (AUTO) 12 % (0-12); NEUTROPHILS # (AUTO) 3.9 X 10^3 (1.8-7.8); NEUTROPHILS % (AUTO) 65 % (42-75); PLATELET COUNT 234 10^3/uL (130-400); RED CELL DISTRIBUTION WIDTH 13.4 % (10.0-14.5)
[2019-06-15 11:40] LABS: BUN/CREATININE RATIO 12; CALCIUM 8.7 MG/DL (8.5-10.1); CARBON DIOXIDE 25 MMOL/L (21-32); CHLORIDE 105 MMOL/L (98-107); CREATININE SERUM 0.89 MG/DL (0.60-1.30); GFR ESTIMATED > 60; GLUCOSE 88 MG/DL (70-105); POTASSIUM 4.6 MMOL/L (3.6-5.0); SODIUM 140 MMOL/L (135-145)
[2019-06-22 11:18] LABS: BASOPHILS # (AUTO) 0.1 10^3/uL (0.0-0.1); BASOPHILS % (AUTO) 2 % (0-10); EOSINOPHILS # (AUTO) 0.6 10^3/uL (0.0-0.3); EOSINOPHILS % (AUTO) 14 % (0-10); HEMATOCRIT 39 % (35-52); HEMOGLOBIN 13.2 G/DL (11.5-16.0); LYMPHOCYTES # (AUTO) 0.4 X 10^3 (1.0-4.0); LYMPHOCYTES % (AUTO) 10 % (12-44); MEAN CORPUSCULAR HEMOGLOBIN 32 PG (25-34); MEAN CORPUSCULAR HGB CONC 34 G/DL (32-36); MEAN CORPUSCULAR VOLUME 94 FL (80-99); MEAN PLATELET VOLUME 10.3 FL (7.4-10.4); MONOCYTES # (AUTO) 0.9 X 10^3 (0.0-1.0); MONOCYTES % (AUTO) 19 % (0-12); NEUTROPHILS # (AUTO) 2.5 X 10^3 (1.8-7.8); NEUTROPHILS % (AUTO) 55 % (42-75); PLATELET COUNT 208 10^3/uL (130-400); RED CELL DISTRIBUTION WIDTH 13.4 % (10.0-14.5); WHITE BLOOD COUNT 4.5 10^3/uL (4.3-11.0)
[2019-06-22 11:40] LABS: BUN/CREATININE RATIO 14; CALCIUM 8.9 MG/DL (8.5-10.1); CARBON DIOXIDE 26 MMOL/L (21-32); CHLORIDE 105 MMOL/L (98-107); CREATININE SERUM 0.87 MG/DL (0.60-1.30); GFR ESTIMATED > 60; GLUCOSE 90 MG/DL (70-105); POTASSIUM 4.6 MMOL/L (3.6-5.0); SODIUM 138 MMOL/L (135-145)
[2019-06-29 09:54] LABS: BASOPHILS # (AUTO) 0.1 10^3/uL (0.0-0.1); BASOPHILS % (AUTO) 1 % (0-10); EOSINOPHILS # (AUTO) 0.7 10^3/uL (0.0-0.3); EOSINOPHILS % (AUTO) 11 % (0-10); HEMATOCRIT 38 % (35-52); HEMOGLOBIN 12.9 G/DL (11.5-16.0); LYMPHOCYTES # (AUTO) 0.9 X 10^3 (1.0-4.0); LYMPHOCYTES % (AUTO) 13 % (12-44); MEAN CORPUSCULAR HEMOGLOBIN 32 PG (25-34); MEAN CORPUSCULAR HGB CONC 34 G/DL (32-36); MEAN CORPUSCULAR VOLUME 95 FL (80-99); MONOCYTES # (AUTO) 0.7 X 10^3 (0.0-1.0); MONOCYTES % (AUTO) 10 % (0-12); NEUTROPHILS # (AUTO) 4.2 X 10^3 (1.8-7.8); NEUTROPHILS % (AUTO) 64 % (42-75); PLATELET COUNT 238 10^3/uL (130-400); RED CELL DISTRIBUTION WIDTH 13.2 % (10.0-14.5); WHITE BLOOD COUNT 6.6 10^3/uL (4.3-11.0)
[2019-06-29 10:28] LABS: ALANINE AMINOTRANSFERASE 25 U/L (0-55); ALBUMIN 3.8 GM/DL (3.2-4.5); ALKALINE PHOSPHATASE 73 U/L (40-136); BILIRUBIN,TOTAL 0.2 MG/DL (0.1-1.0); BUN/CREATININE RATIO 13; CALCIUM 8.7 MG/DL (8.5-10.1); CARBON DIOXIDE 24 MMOL/L (21-32); CHLORIDE 105 MMOL/L (98-107); CREATININE SERUM 0.86 MG/DL (0.60-1.30); GFR ESTIMATED > 60; GLUCOSE 89 MG/DL (70-105); POTASSIUM 4.3 MMOL/L (3.6-5.0); SODIUM 139 MMOL/L (135-145); TOTAL PROTEIN 6.7 GM/DL (6.4-8.2)
[2019-07-13 10:45] LABS: BASOPHILS # (AUTO) 0.1 10^3/uL (0.0-0.1); BASOPHILS % (AUTO) 1 % (0-10); EOSINOPHILS # (AUTO) 0.5 10^3/uL (0.0-0.3); EOSINOPHILS % (AUTO) 9 % (0-10); HEMATOCRIT 37 % (35-52); HEMOGLOBIN 12.4 G/DL (11.5-16.0); LYMPHOCYTES # (AUTO) 0.6 X 10^3 (1.0-4.0); LYMPHOCYTES % (AUTO) 12 % (12-44); MEAN CORPUSCULAR HEMOGLOBIN 32 PG (25-34); MEAN CORPUSCULAR HGB CONC 34 G/DL (32-36); MEAN CORPUSCULAR VOLUME 93 FL (80-99); MEAN PLATELET VOLUME 10.1 FL (7.4-10.4); MONOCYTES # (AUTO) 0.6 X 10^3 (0.0-1.0); MONOCYTES % (AUTO) 11 % (0-12); NEUTROPHILS # (AUTO) 3.6 X 10^3 (1.8-7.8); NEUTROPHILS % (AUTO) 68 % (42-75); PLATELET COUNT 238 10^3/uL (130-400); RED CELL DISTRIBUTION WIDTH 13.3 % (10.0-14.5); WHITE BLOOD COUNT 5.3 10^3/uL (4.3-11.0)
[2019-07-13 11:07] LABS: BUN/CREATININE RATIO 16; CALCIUM 8.6 MG/DL (8.5-10.1); CARBON DIOXIDE 25 MMOL/L (21-32); CHLORIDE 106 MMOL/L (98-107); GFR ESTIMATED > 60; GLUCOSE 87 MG/DL (70-105); POTASSIUM 4.4 MMOL/L (3.6-5.0); SODIUM 139 MMOL/L (135-145)
[2019-07-27 10:08] LABS: BASOPHILS % (AUTO) 1 % (0-10); EOSINOPHILS # (AUTO) 0.5 10^3/uL (0.0-0.3); EOSINOPHILS % (AUTO) 8 % (0-10); HEMATOCRIT 35 % (35-52); HEMOGLOBIN 11.9 G/DL (11.5-16.0); LYMPHOCYTES # (AUTO) 0.5 X 10^3 (1.0-4.0); LYMPHOCYTES % (AUTO) 8 % (12-44); MEAN CORPUSCULAR HEMOGLOBIN 32 PG (25-34); MEAN CORPUSCULAR HGB CONC 34 G/DL (32-36); MEAN CORPUSCULAR VOLUME 95 FL (80-99); MONOCYTES # (AUTO) 0.9 X 10^3 (0.0-1.0); MONOCYTES % (AUTO) 15 % (0-12); NEUTROPHILS # (AUTO) 4.1 X 10^3 (1.8-7.8); NEUTROPHILS % (AUTO) 69 % (42-75); PLATELET COUNT 206 10^3/uL (130-400); RED CELL DISTRIBUTION WIDTH 13.6 % (10.0-14.5); WHITE BLOOD COUNT 5.9 10^3/uL (4.3-11.0)
[2019-07-27 10:27] LABS: ALANINE AMINOTRANSFERASE 34 U/L (0-55); ALBUMIN 3.7 GM/DL (3.2-4.5); ALKALINE PHOSPHATASE 56 U/L (40-136); BILIRUBIN,TOTAL 0.4 MG/DL (0.1-1.0); BUN/CREATININE RATIO 15; CALCIUM 8.6 MG/DL (8.5-10.1); CARBON DIOXIDE 24 MMOL/L (21-32); CHLORIDE 106 MMOL/L (98-107); CREATININE SERUM 0.78 MG/DL (0.60-1.30); GFR ESTIMATED > 60; GLUCOSE 88 MG/DL (70-105); POTASSIUM 4.3 MMOL/L (3.6-5.0); SODIUM 138 MMOL/L (135-145); TOTAL PROTEIN 6.2 GM/DL (6.4-8.2)
[2019-08-24 09:39] LABS: BASOPHILS % (AUTO) 1 % (0-10); EOSINOPHILS # (AUTO) 0.2 10^3/uL (0.0-0.3); EOSINOPHILS % (AUTO) 4 % (0-10); HEMATOCRIT 39 % (35-52); HEMOGLOBIN 13.4 G/DL (11.5-16.0); LYMPHOCYTES # (AUTO) 0.7 X 10^3 (1.0-4.0); LYMPHOCYTES % (AUTO) 13 % (12-44); MEAN CORPUSCULAR HEMOGLOBIN 33 PG (25-34); MEAN CORPUSCULAR HGB CONC 34 G/DL (32-36); MEAN CORPUSCULAR VOLUME 95 FL (80-99); MEAN PLATELET VOLUME 10.2 FL (7.4-10.4); MONOCYTES # (AUTO) 0.4 X 10^3 (0.0-1.0); MONOCYTES % (AUTO) 8 % (0-12); NEUTROPHILS # (AUTO) 4.2 X 10^3 (1.8-7.8); NEUTROPHILS % (AUTO) 75 % (42-75); PLATELET COUNT 238 10^3/uL (130-400); WHITE BLOOD COUNT 5.6 10^3/uL (4.3-11.0)
[2019-08-24 10:04] LABS: ALANINE AMINOTRANSFERASE 14 U/L (0-55); ALBUMIN 4.1 GM/DL (3.2-4.5); ALKALINE PHOSPHATASE 48 U/L (40-136); BILIRUBIN,TOTAL 0.4 MG/DL (0.1-1.0); BUN/CREATININE RATIO 15; CALCIUM 8.9 MG/DL (8.5-10.1); CARBON DIOXIDE 22 MMOL/L (21-32); CHLORIDE 109 MMOL/L (98-107); CREATININE SERUM 0.85 MG/DL (0.60-1.30); GFR ESTIMATED > 60; GLUCOSE 90 MG/DL (70-105); SODIUM 140 MMOL/L (135-145); TOTAL PROTEIN 6.8 GM/DL (6.4-8.2)
[~2019-08-25 09:52] MED LIST changes: +ACETAMINOPHEN 325 MG TAB (TYLENOL) CANCER CTR PO PRN; +ATROPINE INJ 0.4 MG/ML SDV (CANCER CENTER) IV SCH; +BENDAMUSTINE HCL IV SCH; +FAMOTIDINE 20MG/2ML IV (CANCER CTR) IV SCH; +NS IV 1000 ML (CANCER CTR) IV SCH; +NS IV 500 ML (CANCER CENTER) 500 ML ONE; +NS IV SCH; +ONDANSETRON MDV (CANCER CENTER 16 MG, DEXAMETHASONE INJECTION 10 MG in NS (IVPB) CANCER... IV SCH; +PALONOSETRON HCL 0.25 MG, DEXAMETHASONE INJECTION 10 MG in NS (IVPB) CANCER CENTER 50 ML IV SCH; +diphenhydrAMINE 25 MG TAB (BENADRYL) CANCER CENTER PO SCH; +riTUXimab 500 MG, riTUXimab FOR IV INJ CONC 200 MG in NS (IVPB) CANCER CENTER ONLY 150 ML IV SCH
== END 2019-08-30 | disposition home or self-care (01) ==
LOC: ONC 09:52
PROVIDERS: ATTEND Internal Medicine Hematology & Oncology
DX: Z51.11 Encounter for antineoplastic chemotherapy (principal); C82.38 Follicular lymphoma grade IIIa, lymph nodes of multiple sites; E03.9 Hypothyroidism, unspecified; E11.9 Type 2 diabetes mellitus without complications; Z86.59 Personal history of other mental and behavioral disorders
CPT/HCPCS: 80053; 85025; 96375; 96411; 96413; 96415; G0463; 36591; 80048; 96409; J9312

== ENCOUNTER → 2019-09-21 | Outpatient (CLI) | payer BC, MEDICAID ==
[~2019-09-21] MED LIST changes: -ACETAMINOPHEN 325 MG TAB (TYLENOL) CANCER CTR PO PRN; -ATROPINE INJ 0.4 MG/ML SDV (CANCER CENTER) IV SCH; -BENDAMUSTINE HCL IV SCH; -FAMOTIDINE 20MG/2ML IV (CANCER CTR) IV SCH; -NS IV 1000 ML (CANCER CTR) IV SCH; -NS IV 500 ML (CANCER CENTER) 500 ML ONE; -NS IV SCH; -ONDANSETRON MDV (CANCER CENTER 16 MG, DEXAMETHASONE INJECTION 10 MG in NS (IVPB) CANCER... IV SCH; -PALONOSETRON HCL 0.25 MG, DEXAMETHASONE INJECTION 10 MG in NS (IVPB) CANCER CENTER 50 ML IV SCH; -diphenhydrAMINE 25 MG TAB (BENADRYL) CANCER CENTER PO SCH; -riTUXimab 500 MG, riTUXimab FOR IV INJ CONC 200 MG in NS (IVPB) CANCER CENTER ONLY 150 ML IV SCH
== END ==
LOC: LAB 09:30
PROVIDERS: ATTEND Internal Medicine
DX: E28.2 Polycystic ovarian syndrome (principal); E83.42 Hypomagnesemia; D51.9 Vitamin B12 deficiency anemia, unspecified
CPT/HCPCS: 36415; 82607; 82627; 83735; 84146; 84403

== ENCOUNTER 2019-10-19 09:16 | Outpatient (RCR) | payer BC, MEDICAID ==
[2019-09-21 09:49] LABS: BASOPHILS % (AUTO) 1 % (0-10); EOSINOPHILS # (AUTO) 0.3 10^3/uL (0.0-0.3); EOSINOPHILS % (AUTO) 4 % (0-10); HEMATOCRIT 38 % (35-52); HEMOGLOBIN 12.7 G/DL (11.5-16.0); LYMPHOCYTES # (AUTO) 0.6 X 10^3 (1.0-4.0); LYMPHOCYTES % (AUTO) 11 % (12-44); MEAN CORPUSCULAR HEMOGLOBIN 33 PG (25-34); MEAN CORPUSCULAR HGB CONC 34 G/DL (32-36); MEAN CORPUSCULAR VOLUME 96 FL (80-99); MEAN PLATELET VOLUME 9.9 FL (7.4-10.4); MONOCYTES # (AUTO) 0.5 X 10^3 (0.0-1.0); MONOCYTES % (AUTO) 9 % (0-12); NEUTROPHILS # (AUTO) 4.3 X 10^3 (1.8-7.8); NEUTROPHILS % (AUTO) 75 % (42-75); PLATELET COUNT 227 10^3/uL (130-400); WHITE BLOOD COUNT 5.8 10^3/uL (4.3-11.0)
[2019-09-21 10:10] LABS: ALANINE AMINOTRANSFERASE 12 U/L (0-55); ALBUMIN 3.7 GM/DL (3.2-4.5); ALKALINE PHOSPHATASE 55 U/L (40-136); BILIRUBIN,TOTAL 0.2 MG/DL (0.1-1.0); BUN/CREATININE RATIO 14; CALCIUM 8.5 MG/DL (8.5-10.1); CARBON DIOXIDE 24 MMOL/L (21-32); CHLORIDE 105 MMOL/L (98-107); CREATININE SERUM 0.83 MG/DL (0.60-1.30); GFR ESTIMATED > 60; GLUCOSE 87 MG/DL (70-105); POTASSIUM 4.2 MMOL/L (3.6-5.0); SODIUM 137 MMOL/L (135-145); TOTAL PROTEIN 6.5 GM/DL (6.4-8.2)
[~2019-10-19 09:16] MED LIST changes: +ACETAMINOPHEN 325 MG TAB (TYLENOL) CANCER CTR PO PRN; +BENDAMUSTINE HCL IV SCH; +FAMOTIDINE 20MG/2ML IV (CANCER CTR) IV SCH; +NS IV 1000 ML (CANCER CTR) IV SCH; +NS IV SCH; +RITUXIMAB-ABBS 500 MG, RITUXIMAB-ABBS 200 MG in NS (IVPB) CANCER CENTER ONLY 150 ML IV SCH; +diphenhydrAMINE 25 MG TAB (BENADRYL) CANCER CENTER PO SCH; +riTUXimab 500 MG, riTUXimab FOR IV INJ CONC 200 MG in NS (IVPB) CANCER CENTER ONLY 150 ML IV SCH
[2019-10-19 09:33] LABS: BASOPHILS % (AUTO) 0 % (0-10); EOSINOPHILS # (AUTO) 0.2 10^3/uL (0.0-0.3); EOSINOPHILS % (AUTO) 3 % (0-10); HEMATOCRIT 40 % (35-52); HEMOGLOBIN 13.8 G/DL (11.5-16.0); LYMPHOCYTES # (AUTO) 0.6 X 10^3 (1.0-4.0); LYMPHOCYTES % (AUTO) 8 % (12-44); MEAN CORPUSCULAR HEMOGLOBIN 33 PG (25-34); MEAN CORPUSCULAR HGB CONC 35 G/DL (32-36); MEAN CORPUSCULAR VOLUME 96 FL (80-99); MONOCYTES # (AUTO) 0.5 X 10^3 (0.0-1.0); MONOCYTES % (AUTO) 7 % (0-12); NEUTROPHILS # (AUTO) 5.7 X 10^3 (1.8-7.8); NEUTROPHILS % (AUTO) 81 % (42-75); PLATELET COUNT 237 10^3/uL (130-400)
[2019-10-19 09:53] LABS: ALANINE AMINOTRANSFERASE 12 U/L (0-55); ALKALINE PHOSPHATASE 54 U/L (40-136); BILIRUBIN,TOTAL 0.5 MG/DL (0.1-1.0); BUN/CREATININE RATIO 12; CARBON DIOXIDE 25 MMOL/L (21-32); CHLORIDE 105 MMOL/L (98-107); CREATININE SERUM 0.91 MG/DL (0.60-1.30); GFR ESTIMATED > 60; GLUCOSE 92 MG/DL (70-105); POTASSIUM 3.7 MMOL/L (3.6-5.0); SODIUM 138 MMOL/L (135-145); TOTAL PROTEIN 6.9 GM/DL (6.4-8.2)
== END 2019-12-20 | disposition home or self-care (01) ==
LOC: ONC 09:16
PROVIDERS: ATTEND Internal Medicine Hematology & Oncology
DX: Z51.11 Encounter for antineoplastic chemotherapy (principal); C82.38 Follicular lymphoma grade IIIa, lymph nodes of multiple sites; E03.9 Hypothyroidism, unspecified; E11.9 Type 2 diabetes mellitus without complications; Z86.59 Personal history of other mental and behavioral disorders
CPT/HCPCS: 80053; 85025; 96375; 96411; 96413; G0463; 36591; 96409

== ENCOUNTER 2020-01-11 08:55 | Outpatient (RCR) | payer BC, MEDICAID ==
[~2020-01-11 08:55] MED LIST changes: -ACETAMINOPHEN 325 MG TAB (TYLENOL) CANCER CTR PO PRN; -BENDAMUSTINE HCL IV SCH; -FAMOTIDINE 20MG/2ML IV (CANCER CTR) IV SCH; -NS IV 1000 ML (CANCER CTR) IV SCH; -NS IV SCH; -RITUXIMAB-ABBS 500 MG, RITUXIMAB-ABBS 200 MG in NS (IVPB) CANCER CENTER ONLY 150 ML IV SCH; -diphenhydrAMINE 25 MG TAB (BENADRYL) CANCER CENTER PO SCH; -riTUXimab 500 MG, riTUXimab FOR IV INJ CONC 200 MG in NS (IVPB) CANCER CENTER ONLY 150 ML IV SCH
[2020-01-11 09:09] LABS: BASOPHILS # (AUTO) 0.1 10^3/uL (0.0-0.1); BASOPHILS % (AUTO) 1 % (0-10); EOSINOPHILS # (AUTO) 0.2 10^3/uL (0.0-0.3); EOSINOPHILS % (AUTO) 3 % (0-10); HEMATOCRIT 39 % (35-52); HEMOGLOBIN 13.1 g/dL (11.5-16.0); LYMPHOCYTES # (AUTO) 0.6 10^3/uL (1.0-4.0); LYMPHOCYTES % (AUTO) 8 % (12-44); MEAN CORPUSCULAR HEMOGLOBIN 32 pg (25-34); MEAN CORPUSCULAR HGB CONC 33 g/dL (32-36); MEAN CORPUSCULAR VOLUME 97 fL (80-99); MEAN PLATELET VOLUME 10.6 fL (9.0-12.2); MONOCYTES # (AUTO) 0.9 10^3/uL (0.0-1.0); MONOCYTES % (AUTO) 12 % (0-12); NEUTROPHILS # (AUTO) 5.2 10^3/uL (1.8-7.8); NEUTROPHILS % (AUTO) 69 % (42-75); PLATELET COUNT 241 10^3/uL (130-400); WHITE BLOOD COUNT 7.6 10^3/uL (4.3-11.0)
[2020-01-11 09:32] LABS: ALANINE AMINOTRANSFERASE 13 U/L (0-55); ALBUMIN 4.1 GM/DL (3.2-4.5); ALKALINE PHOSPHATASE 56 U/L (40-136); BILIRUBIN,TOTAL 0.4 MG/DL (0.1-1.0); BUN/CREATININE RATIO 14; CALCIUM 8.8 MG/DL (8.5-10.1); CARBON DIOXIDE 21 MMOL/L (21-32); CHLORIDE 107 MMOL/L (98-107); CREATININE SERUM 0.97 MG/DL (0.60-1.30); GFR ESTIMATED > 60; GLUCOSE 88 MG/DL (70-105); POTASSIUM 3.8 MMOL/L (3.6-5.0); SODIUM 138 MMOL/L (135-145); TOTAL PROTEIN 6.8 GM/DL (6.4-8.2)
== END 2020-02-15 15:37 | disposition home or self-care (01) ==
LOC: ONC 08:55
PROVIDERS: ATTEND Internal Medicine Hematology & Oncology
DX: Z51.11 Encounter for antineoplastic chemotherapy (principal); C82.31 Follicular lymphoma grade IIIa, lymph nodes of head, face, and neck; F06.4 Anxiety disorder due to known physiological condition; M79.7 Fibromyalgia; E03.9 Hypothyroidism, unspecified; E11.9 Type 2 diabetes mellitus without complications; Z86.59 Personal history of other mental and behavioral disorders
CPT/HCPCS: 36591; 80053; 85025

== ENCOUNTER 2020-02-21 09:08 | Outpatient (RCR) | payer BC, MEDICAID ==
[2020-05-11 11:12] LABS: BASOPHILS # (AUTO) 0.1 10^3/uL (0.0-0.1); BASOPHILS % (AUTO) 1 % (0-10); EOSINOPHILS # (AUTO) 0.3 10^3/uL (0.0-0.3); EOSINOPHILS % (AUTO) 4 % (0-10); HEMATOCRIT 41 % (35-52); HEMOGLOBIN 13.9 g/dL (11.5-16.0); LYMPHOCYTES # (AUTO) 0.9 10^3/uL (1.0-4.0); LYMPHOCYTES % (AUTO) 12 % (12-44); MEAN CORPUSCULAR HEMOGLOBIN 33 pg (25-34); MEAN CORPUSCULAR HGB CONC 34 g/dL (32-36); MEAN CORPUSCULAR VOLUME 96 fL (80-99); MEAN PLATELET VOLUME 10.3 fL (9.0-12.2); MONOCYTES # (AUTO) 0.7 10^3/uL (0.0-1.0); MONOCYTES % (AUTO) 10 % (0-12); NEUTROPHILS # (AUTO) 5.2 10^3/uL (1.8-7.8); NEUTROPHILS % (AUTO) 73 % (42-75); PLATELET COUNT 257 10^3/uL (130-400); WHITE BLOOD COUNT 7.1 10^3/uL (4.3-11.0)
[2020-05-11 11:31] LABS: ALANINE AMINOTRANSFERASE 15 U/L (0-55); ALBUMIN 4.2 GM/DL (3.2-4.5); ALKALINE PHOSPHATASE 51 U/L (40-136); BILIRUBIN,TOTAL 0.5 MG/DL (0.1-1.0); BUN/CREATININE RATIO 15; CALCIUM 9.2 MG/DL (8.5-10.1); CARBON DIOXIDE 22 MMOL/L (21-32); CHLORIDE 108 MMOL/L (98-107); CREATININE SERUM 0.85 MG/DL (0.60-1.30); GFR ESTIMATED > 60; GLUCOSE 86 MG/DL (70-105); POTASSIUM 4.5 MMOL/L (3.6-5.0); SODIUM 140 MMOL/L (135-145); TOTAL PROTEIN 6.9 GM/DL (6.4-8.2)
== END 2020-05-11 10:50 | disposition home or self-care (01) ==
LOC: ONC 09:08
PROVIDERS: ATTEND Internal Medicine Hematology & Oncology
DX: Z51.11 Encounter for antineoplastic chemotherapy (principal); C82.31 Follicular lymphoma grade IIIa, lymph nodes of head, face, and neck; F06.4 Anxiety disorder due to known physiological condition; M79.7 Fibromyalgia; E03.9 Hypothyroidism, unspecified; E11.9 Type 2 diabetes mellitus without complications; Z86.59 Personal history of other mental and behavioral disorders; Z72.0 Tobacco use
CPT/HCPCS: 80053; 83615; 85025; G0463; 99213

== ENCOUNTER → 2020-06-27 | Outpatient (CLI) | payer BC, MEDICAID ==
--- NOTE | 2020-06-27 15:13 | Diagnostic Imaging Report ---
INDICATION: Follicular non-Hodgkin's lymphoma, restaging. Serum blood glucose level at the time of injection is 105 mg/dL. The patient was administered 14.5 mCi F18 FDG intravenously right antecubital location and PET imaging was performed from the top of the skull to mid thighs. Noncontrast CT was also performed for attenuation correction and anatomic correlation. CORRELATION is made with prior PET/CT study from 07/20/2019. There is symmetric activity throughout the brain. Soft tissues of the neck are unremarkable. No mediastinal or hilar hypermetabolism is identified. No pulmonary parenchymal hypermetabolism is identified. There is physiologic activity within the gastrointestinal and genitourinary tracts of the abdomen and pelvis. No hypermetabolic lymphadenopathy is identified. IMPRESSION: Continued stable unremarkable PET/CT study. No suspicious regions of hypermetabolism are identified. Dictated by: Dictated on workstation # [id number]
== END ==
LOC: RAD 08:15
PROVIDERS: ATTEND Internal Medicine Hematology & Oncology
DX: C82.90 Follicular lymphoma, unspecified, unspecified site (principal)
CPT/HCPCS: 78815; A9552

== ENCOUNTER 2020-07-04 10:40 | Outpatient (RCR) | payer BC, MEDICAID ==
[2020-07-04 11:00] LABS: BASOPHILS # (AUTO) 0.1 10^3/uL (0.0-0.1); BASOPHILS % (AUTO) 1 % (0-10); EOSINOPHILS # (AUTO) 0.3 10^3/uL (0.0-0.3); EOSINOPHILS % (AUTO) 3 % (0-10); HEMATOCRIT 40 % (35-52); HEMOGLOBIN 13.3 g/dL (11.5-16.0); LYMPHOCYTES # (AUTO) 1.2 10^3/uL (1.0-4.0); LYMPHOCYTES % (AUTO) 13 % (12-44); MEAN CORPUSCULAR HEMOGLOBIN 32 pg (25-34); MEAN CORPUSCULAR HGB CONC 34 g/dL (32-36); MEAN CORPUSCULAR VOLUME 96 fL (80-99); MEAN PLATELET VOLUME 10.3 fL (9.0-12.2); MONOCYTES # (AUTO) 0.9 10^3/uL (0.0-1.0); MONOCYTES % (AUTO) 9 % (0-12); NEUTROPHILS # (AUTO) 6.9 10^3/uL (1.8-7.8); NEUTROPHILS % (AUTO) 73 % (42-75); PLATELET COUNT 282 10^3/uL (130-400); WHITE BLOOD COUNT 9.4 10^3/uL (4.3-11.0)
[2020-07-04 11:22] LABS: ALANINE AMINOTRANSFERASE 9 U/L (0-55); ALKALINE PHOSPHATASE 53 U/L (40-136); BILIRUBIN,TOTAL 0.4 MG/DL (0.1-1.0); BUN/CREATININE RATIO 14; CALCIUM 8.6 MG/DL (8.5-10.1); CARBON DIOXIDE 26 MMOL/L (21-32); CHLORIDE 107 MMOL/L (98-107); CREATININE SERUM 0.91 MG/DL (0.60-1.30); GFR ESTIMATED > 60; GLUCOSE 76 MG/DL (70-105); POTASSIUM 4.4 MMOL/L (3.6-5.0); SODIUM 139 MMOL/L (135-145); TOTAL PROTEIN 6.6 GM/DL (6.4-8.2)
== END 2020-08-09 | disposition home or self-care (01) ==
LOC: ONC 10:40
PROVIDERS: ATTEND Internal Medicine Hematology & Oncology
DX: C82.31 Follicular lymphoma grade IIIa, lymph nodes of head, face, and neck (principal); F06.4 Anxiety disorder due to known physiological condition; M79.7 Fibromyalgia; F41.9 Anxiety disorder, unspecified; F32.9 Major depressive disorder, single episode, unspecified; E66.9 Obesity, unspecified; K04.7 Periapical abscess without sinus; E03.9 Hypothyroidism, unspecified; E11.9 Type 2 diabetes mellitus without complications; Z86.59 Personal history of other mental and behavioral disorders; Z72.0 Tobacco use
CPT/HCPCS: 36591; 80053; 85025

== ENCOUNTER 2020-12-12 10:05 | Outpatient (RCR) | payer MEDICARE, MEDICAID ==
[~2020-12-12 10:05] MED LIST changes: -DULO60CA6 PO; +DULO60CA7 PO
[2020-12-12 10:21] LABS: BASOPHILS # (AUTO) 0.1 10^3/uL (0.0-0.1); BASOPHILS % (AUTO) 1 % (0-10); EOSINOPHILS # (AUTO) 0.3 10^3/uL (0.0-0.3); EOSINOPHILS % (AUTO) 3 % (0-10); HEMATOCRIT 42 % (35-52); HEMOGLOBIN 14.2 g/dL (11.5-16.0); LYMPHOCYTES # (AUTO) 1.3 10^3/uL (1.0-4.0); LYMPHOCYTES % (AUTO) 16 % (12-44); MEAN CORPUSCULAR HEMOGLOBIN 32 pg (25-34); MEAN CORPUSCULAR HGB CONC 34 g/dL (32-36); MEAN CORPUSCULAR VOLUME 96 fL (80-99); MEAN PLATELET VOLUME 10.3 fL (9.0-12.2); MONOCYTES # (AUTO) 0.8 10^3/uL (0.0-1.0); MONOCYTES % (AUTO) 10 % (0-12); NEUTROPHILS # (AUTO) 5.8 10^3/uL (1.8-7.8); NEUTROPHILS % (AUTO) 70 % (42-75); PLATELET COUNT 287 10^3/uL (130-400); WHITE BLOOD COUNT 8.2 10^3/uL (4.3-11.0)
[2020-12-12 10:45] LABS: ALBUMIN 4.2 GM/DL (3.2-4.5); BILIRUBIN,TOTAL 0.3 MG/DL (0.1-1.0); CALCIUM 9.2 MG/DL (8.5-10.1); CREATININE SERUM 1.02 MG/DL (0.60-1.30); POTASSIUM 4.5 MMOL/L (3.6-5.0); TOTAL PROTEIN 6.9 GM/DL (6.4-8.2)
== END 2020-12-25 | disposition home or self-care (01) ==
LOC: ONC 10:05
PROVIDERS: ATTEND Internal Medicine Hematology & Oncology
DX: Z45.2 Encounter for adjustment and management of vascular access device (principal); C82.31 Follicular lymphoma grade IIIa, lymph nodes of head, face, and neck; F06.4 Anxiety disorder due to known physiological condition; M79.7 Fibromyalgia; F41.8 Other specified anxiety disorders; E66.9 Obesity, unspecified; K04.7 Periapical abscess without sinus; E03.9 Hypothyroidism, unspecified; E11.9 Type 2 diabetes mellitus without complications; Z72.0 Tobacco use
CPT/HCPCS: 36591; 80053; 83615; 85025; 96523

== ENCOUNTER 2021-03-06 09:59 | Outpatient (RCR) | payer MEDICARE, MEDICAID | END 2021-03-12 | disposition home or self-care (01) | LOC: ONC 09:59 | PROVIDERS: ATTEND Internal Medicine Hematology & Oncology | DX: Z45.2 Encounter for adjustment and management of vascular access device (principal); C82.31 Follicular lymphoma grade IIIa, lymph nodes of head, face, and neck; E66.9 Obesity, unspecified; E03.9 Hypothyroidism, unspecified; E11.9 Type 2 diabetes mellitus without complications; Z72.0 Tobacco use | CPT/HCPCS: 96523 ==

== ENCOUNTER → 2021-05-28 | Outpatient (CLI) | payer MEDICARE, MEDICAID ==
--- NOTE | 2021-05-28 11:48 | Diagnostic Imaging Report ---
INDICATION: Follicular lymphoma, restaging. Serum blood glucose level at time of injection 75 mg/dL. Patient was administered 14.0 mCi F-18 FDG intravenously in the left antecubital location and PET imaging was performed from the top of skull to mid thighs. Noncontrast CT was also performed for attenuation correction and anatomic correlation. Correlation is made with prior PET/CT study from 06/27/2020. There is a symmetric activity throughout the brain. There has been development of a hypermetabolic lymph node in the left posterior cervical chain. There is some hypermetabolic lymph nodes in the axillae bilaterally. There is some low-level activity involving a right hilar lymph node. There is some activity in the region of the mayco hepatis with SUV max of 6.3. Hypermetabolic central retroperitoneal lymphadenopathy has developed. A left para-aortic hypermetabolic lymph node below the level of the kidneys demonstrates an SUV max of 7.0. There are bilateral iliac chain hypermetabolic lymph nodes greater on the right. A right iliac chain node shows SUV max of 8.2. There are bilateral obturator hypermetabolic lymph nodes as well as hypermetabolic bilateral inguinal lymph nodes. IMPRESSION: Development of hypermetabolic lymph nodes in the cervical spine, april, axillae as well as in the abdomen and pelvis consistent with lymphoma recurrence. Dictated by: Dictated on workstation # [id number]
== END ==
LOC: RAD 09:45
PROVIDERS: ATTEND Internal Medicine Hematology & Oncology
DX: C82.98 Follicular lymphoma, unspecified, lymph nodes of multiple sites (principal)
CPT/HCPCS: 78815; A9552

== ENCOUNTER 2021-06-04 10:55 | Outpatient (RCR) | payer MEDICARE, MEDICAID ==
[2021-05-28 09:28] LABS: BASOPHILS # (AUTO) 0.1 10^3/uL (0.0-0.1); BASOPHILS % (AUTO) 1 % (0-10); EOSINOPHILS # (AUTO) 0.4 10^3/uL (0.0-0.3); EOSINOPHILS % (AUTO) 4 % (0-10); HEMATOCRIT 39 % (35-52); HEMOGLOBIN 13.1 g/dL (11.5-16.0); LYMPHOCYTES # (AUTO) 1.3 10^3/uL (1.0-4.0); LYMPHOCYTES % (AUTO) 15 % (12-44); MEAN CORPUSCULAR HEMOGLOBIN 32 pg (25-34); MEAN CORPUSCULAR HGB CONC 33 g/dL (32-36); MEAN CORPUSCULAR VOLUME 95 fL (80-99); MEAN PLATELET VOLUME 11.1 fL (9.0-12.2); MONOCYTES # (AUTO) 0.8 10^3/uL (0.0-1.0); MONOCYTES % (AUTO) 9 % (0-12); NEUTROPHILS # (AUTO) 6.2 10^3/uL (1.8-7.8); NEUTROPHILS % (AUTO) 71 % (42-75); PLATELET COUNT 230 10^3/uL (130-400); WHITE BLOOD COUNT 8.7 10^3/uL (4.3-11.0)
[2021-05-28 09:38] LABS: ALBUMIN 3.9 GM/DL (3.2-4.5); BILIRUBIN,TOTAL 0.4 MG/DL (0.1-1.0); CREATININE SERUM 0.91 MG/DL (0.60-1.30); POTASSIUM 4.3 MMOL/L (3.6-5.0); TOTAL PROTEIN 6.3 GM/DL (6.4-8.2)
== END 2021-06-09 | disposition home or self-care (01) ==
LOC: ONC 10:55
PROVIDERS: ATTEND Internal Medicine Hematology & Oncology
DX: C82.31 Follicular lymphoma grade IIIa, lymph nodes of head, face, and neck (principal); E66.9 Obesity, unspecified; E03.9 Hypothyroidism, unspecified; E11.9 Type 2 diabetes mellitus without complications; Z72.0 Tobacco use
CPT/HCPCS: 80053; 85025; 99213

== ENCOUNTER 2021-08-03 09:34 | Outpatient (RCR) | payer MEDICARE, MEDICAID ==
[2021-07-23 08:43] LABS: BASOPHILS # (AUTO) 0.1 10^3/uL (0.0-0.1); BASOPHILS % (AUTO) 1 % (0-10); EOSINOPHILS # (AUTO) 0.5 10^3/uL (0.0-0.3); EOSINOPHILS % (AUTO) 4 % (0-10); HEMATOCRIT 40 % (35-52); HEMOGLOBIN 13.1 g/dL (11.5-16.0); LYMPHOCYTES # (AUTO) 1.6 10^3/uL (1.0-4.0); LYMPHOCYTES % (AUTO) 14 % (12-44); MEAN CORPUSCULAR HEMOGLOBIN 32 pg (25-34); MEAN CORPUSCULAR HGB CONC 33 g/dL (32-36); MEAN CORPUSCULAR VOLUME 97 fL (80-99); MONOCYTES # (AUTO) 1.3 10^3/uL (0.0-1.0); MONOCYTES % (AUTO) 11 % (0-12); NEUTROPHILS # (AUTO) 8.5 10^3/uL (1.8-7.8); NEUTROPHILS % (AUTO) 70 % (42-75); PLATELET COUNT 237 10^3/uL (130-400); WHITE BLOOD COUNT 12.1 10^3/uL (4.3-11.0)
[2021-07-23 09:10] LABS: ALBUMIN 3.9 GM/DL (3.2-4.5); BILIRUBIN,TOTAL 0.2 MG/DL (0.1-1.0); CALCIUM 8.6 MG/DL (8.5-10.1); CREATININE SERUM 1.03 MG/DL (0.60-1.30); POTASSIUM 4.1 MMOL/L (3.6-5.0); TOTAL PROTEIN 6.4 GM/DL (6.4-8.2)
[~2021-08-03] VITALS: Ht 167.6 cm; Wt 90.3 kg
[~2021-08-03 09:34] MED LIST changes: +ACETAMINOPHEN 325 MG TABLET PO PRN; +CARBOPLATIN IV SCH; +D5W IV SCH; +ETOPOSIDE IV SCH; +FAMOTIDINE 20MG/2ML IV (PEPCID) IV PRN; +FOSAPREPITANT (CANCER CENTER) 150 MG in NS (IVPB) CANCER CENTER ONLY 150 ML IV SCH; +HEParin (CENTRAL IV FLUSH) 500 UNIT/5 ML SYR IV PRN; +IFOSFAMIDE IV SCH; +MESNA IV SCH; +NORMAL SALINE IV SCH; +NS IV 1000 ML (CANCER CTR) IV SCH; +NS IV SCH; +ONDANSETRON MDV (CANCER CENTER 16 MG, dexAMETHasone INJECTION 10 MG in NS (IVPB) 50 ML IV SCH; +PALONOSETRON HCL 0.25 MG, dexAMETHasone INJECTION 10 MG in NS (IVPB) 50 ML IV SCH; +PEGFILGRASTIM-BMEZ 6 MG/0.6 ML ZIEXTENZO SQ SCH; +RITUXIMAB-ABBS 500 MG, RITUXIMAB-ABBS 200 MG in NS (IVPB) CANCER CENTER ONLY 150 ML IV SCH; +diphenhydrAMINE 25 MG TAB (BENADRYL) PO SCH
[2021-08-03 09:48] LABS: BASOPHILS % (AUTO) 2 % (0-10); EOSINOPHILS # (AUTO) 0.1 10^3/uL (0.0-0.3); EOSINOPHILS % (AUTO) 2 % (0-10); HEMATOCRIT 34 % (35-52); HEMOGLOBIN 11.3 g/dL (11.5-16.0); LYMPHOCYTES # (AUTO) 0.7 10^3/uL (1.0-4.0); LYMPHOCYTES % (AUTO) 33 % (12-44); MEAN CORPUSCULAR HEMOGLOBIN 32 pg (25-34); MEAN CORPUSCULAR HGB CONC 33 g/dL (32-36); MEAN CORPUSCULAR VOLUME 96 fL (80-99); MEAN PLATELET VOLUME 10.3 fL (9.0-12.2); MONOCYTES # (AUTO) 0.2 10^3/uL (0.0-1.0); MONOCYTES % (AUTO) 9 % (0-12); NEUTROPHILS # (AUTO) 1.1 10^3/uL (1.8-7.8); NEUTROPHILS % (AUTO) 53 % (42-75); PLATELET COUNT 41 10^3/uL (130-400); WHITE BLOOD COUNT 2.1 10^3/uL (4.3-11.0)
[2021-08-03 10:03] LABS: ALBUMIN 3.8 GM/DL (3.2-4.5); BILIRUBIN,TOTAL 0.2 MG/DL (0.1-1.0); CALCIUM 8.7 MG/DL (8.5-10.1); CREATININE SERUM 0.87 MG/DL (0.60-1.30); POTASSIUM 4.5 MMOL/L (3.6-5.0); TOTAL PROTEIN 6.2 GM/DL (6.4-8.2)
== END 2021-08-09 | disposition home or self-care (01) ==
LOC: ONC 09:34
PROVIDERS: ATTEND Internal Medicine Hematology & Oncology
DX: Z51.11 Encounter for antineoplastic chemotherapy (principal); Z45.2 Encounter for adjustment and management of vascular access device; C82.31 Follicular lymphoma grade IIIa, lymph nodes of head, face, and neck; E66.9 Obesity, unspecified; E03.9 Hypothyroidism, unspecified; E11.9 Type 2 diabetes mellitus without complications; F41.8 Other specified anxiety disorders; F31.9 Bipolar disorder, unspecified; Z72.0 Tobacco use
CPT/HCPCS: 36415; 36591; 80053; 85025; 96360; 96361; 96367; 96368; 96372; 96375; 96413; 96415; 96417

== ENCOUNTER 2021-08-31 09:58 | Outpatient (RCR) | payer MEDICARE, MEDICAID ==
[2021-08-10 09:04] LABS: BASOPHILS # (AUTO) 0.1 10^3/uL (0.0-0.1); BASOPHILS % (AUTO) 1 % (0-10); EOSINOPHILS % (AUTO) 0 % (0-10); HEMOGLOBIN 11.8 g/dL (11.5-16.0); PLATELET COUNT 64 10^3/uL (130-400)
[2021-08-10 09:06] LABS: HEMATOCRIT 34 % (35-52); LYMPHOCYTES # (AUTO) 1.7 10^3/uL (1.0-4.0); LYMPHOCYTES % (AUTO) 14 % (12-44); MEAN CORPUSCULAR HEMOGLOBIN 32 pg (25-34); MEAN CORPUSCULAR HGB CONC 34 g/dL (32-36); MEAN CORPUSCULAR VOLUME 94 fL (80-99); MEAN PLATELET VOLUME 10.8 fL (9.0-12.2); MONOCYTES # (AUTO) 1.6 10^3/uL (0.0-1.0); MONOCYTES % (AUTO) 14 % (0-12); NEUTROPHILS # (AUTO) 6.9 10^3/uL (1.8-7.8); NEUTROPHILS % (AUTO) 57 % (42-75); WHITE BLOOD COUNT 12.1 10^3/uL (4.3-11.0)
[2021-08-10 09:23] LABS: ALBUMIN 4.4 GM/DL (3.2-4.5); BILIRUBIN,TOTAL 0.2 MG/DL (0.1-1.0); CALCIUM 9.7 MG/DL (8.5-10.1); CREATININE SERUM 1.01 MG/DL (0.60-1.30); TOTAL PROTEIN 7.1 GM/DL (6.4-8.2)
[2021-08-14 09:16] LABS: BASOPHILS # (AUTO) 0.1 10^3/uL (0.0-0.1); BASOPHILS % (AUTO) 1 % (0-10); EOSINOPHILS % (AUTO) 0 % (0-10); HEMATOCRIT 33 % (35-52); HEMOGLOBIN 10.9 g/dL (11.5-16.0); LYMPHOCYTES # (AUTO) 1.1 10^3/uL (1.0-4.0); LYMPHOCYTES % (AUTO) 12 % (12-44); MEAN CORPUSCULAR HEMOGLOBIN 32 pg (25-34); MEAN CORPUSCULAR HGB CONC 33 g/dL (32-36); MEAN CORPUSCULAR VOLUME 95 fL (80-99); MEAN PLATELET VOLUME 9.8 fL (9.0-12.2); MONOCYTES # (AUTO) 1.3 10^3/uL (0.0-1.0); MONOCYTES % (AUTO) 14 % (0-12); NEUTROPHILS # (AUTO) 6.3 10^3/uL (1.8-7.8); NEUTROPHILS % (AUTO) 70 % (42-75); PLATELET COUNT 374 10^3/uL (130-400)
[2021-08-14 09:38] LABS: ALBUMIN 4.2 GM/DL (3.2-4.5); BILIRUBIN,TOTAL 0.2 MG/DL (0.1-1.0); CALCIUM 9.3 MG/DL (8.5-10.1); CREATININE SERUM 0.91 MG/DL (0.60-1.30); POTASSIUM 4.1 MMOL/L (3.6-5.0); TOTAL PROTEIN 6.8 GM/DL (6.4-8.2)
[2021-08-24 10:10] LABS: EOSINOPHILS % (AUTO) 0 % (0-10); HEMOGLOBIN 9.5 g/dL (11.5-16.0); MONOCYTES % (AUTO) 20 % (0-12)
[2021-08-24 10:12] LABS: BASOPHILS % (AUTO) 5 % (0-10); HEMATOCRIT 28 % (35-52); LYMPHOCYTES # (AUTO) 0.5 10^3/uL (1.0-4.0); LYMPHOCYTES % (AUTO) 65 % (12-44); MEAN CORPUSCULAR HEMOGLOBIN 32 pg (25-34); MEAN CORPUSCULAR HGB CONC 34 g/dL (32-36); MEAN CORPUSCULAR VOLUME 94 fL (80-99); MONOCYTES # (AUTO) 0.2 10^3/uL (0.0-1.0); NEUTROPHILS % (AUTO) 5 % (42-75); PLATELET COUNT 74 10^3/uL (130-400)
[2021-08-24 10:24] LABS: WHITE BLOOD COUNT 0.8 10^3/uL (4.3-11.0)
[2021-08-24 10:30] LABS: ALBUMIN 4.1 GM/DL (3.2-4.5); BILIRUBIN,TOTAL 0.2 MG/DL (0.1-1.0); CALCIUM 9.2 MG/DL (8.5-10.1); CREATININE SERUM 0.79 MG/DL (0.60-1.30); POTASSIUM 4.3 MMOL/L (3.6-5.0); TOTAL PROTEIN 6.7 GM/DL (6.4-8.2)
[2021-08-31 10:17] LABS: EOSINOPHILS % (AUTO) 0 % (0-10); MEAN CORPUSCULAR HEMOGLOBIN 32 pg (25-34); MEAN CORPUSCULAR HGB CONC 35 g/dL (32-36)
[2021-08-31 10:19] LABS: BASOPHILS # (AUTO) 0.1 10^3/uL (0.0-0.1); BASOPHILS % (AUTO) 1 % (0-10); HEMATOCRIT 28 % (35-52); HEMOGLOBIN 9.8 g/dL (11.5-16.0); LYMPHOCYTES # (AUTO) 1.3 10^3/uL (1.0-4.0); LYMPHOCYTES % (AUTO) 11 % (12-44); MEAN CORPUSCULAR VOLUME 92 fL (80-99); MEAN PLATELET VOLUME 10.8 fL (9.0-12.2); MONOCYTES # (AUTO) 1.1 10^3/uL (0.0-1.0); MONOCYTES % (AUTO) 9 % (0-12); NEUTROPHILS # (AUTO) 7.5 10^3/uL (1.8-7.8); NEUTROPHILS % (AUTO) 62 % (42-75); WHITE BLOOD COUNT 12.1 10^3/uL (4.3-11.0)
[2021-08-31 10:21] LABS: PLATELET COUNT 26 10^3/uL (130-400)
[2021-08-31 10:39] LABS: ALBUMIN 4.3 GM/DL (3.2-4.5); BILIRUBIN,TOTAL 0.1 MG/DL (0.1-1.0); CALCIUM 9.5 MG/DL (8.5-10.1); CREATININE SERUM 1.01 MG/DL (0.60-1.30); POTASSIUM 4.5 MMOL/L (3.6-5.0); TOTAL PROTEIN 7.2 GM/DL (6.4-8.2)
== END 2021-09-09 | disposition home or self-care (01) ==
LOC: ONC 09:58
PROVIDERS: ATTEND Internal Medicine Hematology & Oncology
DX: Z51.11 Encounter for antineoplastic chemotherapy (principal); Z45.2 Encounter for adjustment and management of vascular access device; C82.31 Follicular lymphoma grade IIIa, lymph nodes of head, face, and neck; E66.9 Obesity, unspecified; E03.9 Hypothyroidism, unspecified; E11.9 Type 2 diabetes mellitus without complications; F41.8 Other specified anxiety disorders; F31.9 Bipolar disorder, unspecified; D69.6 Thrombocytopenia, unspecified; Z72.0 Tobacco use
CPT/HCPCS: 80053; 85025; G0463; 36415; 36591; 96360; 96361; 96367; 96372; 96375; 96413; 96415; 96417; 99213

== ENCOUNTER 2021-11-05 10:41 | Outpatient (RCR) | payer MEDICARE, MEDICAID ==
[~2021-11-05 10:41] MED LIST changes: -ACETAMINOPHEN 325 MG TABLET PO PRN; -CARBOPLATIN IV SCH; -D5W IV SCH; -ETOPOSIDE IV SCH; -FAMOTIDINE 20MG/2ML IV (PEPCID) IV PRN; -FOSAPREPITANT (CANCER CENTER) 150 MG in NS (IVPB) CANCER CENTER ONLY 150 ML IV SCH; -HEParin (CENTRAL IV FLUSH) 500 UNIT/5 ML SYR IV PRN; -IFOSFAMIDE IV SCH; -MESNA IV SCH; -NORMAL SALINE IV SCH; -NS IV 1000 ML (CANCER CTR) IV SCH; -NS IV SCH; -ONDANSETRON MDV (CANCER CENTER 16 MG, dexAMETHasone INJECTION 10 MG in NS (IVPB) 50 ML IV SCH; -PALONOSETRON HCL 0.25 MG, dexAMETHasone INJECTION 10 MG in NS (IVPB) 50 ML IV SCH; -PEGFILGRASTIM-BMEZ 6 MG/0.6 ML ZIEXTENZO SQ SCH; -RITUXIMAB-ABBS 500 MG, RITUXIMAB-ABBS 200 MG in NS (IVPB) CANCER CENTER ONLY 150 ML IV SCH; -diphenhydrAMINE 25 MG TAB (BENADRYL) PO SCH
[2021-11-05 11:08] LABS: BASOPHILS # (AUTO) 0.1 10^3/uL (0.0-0.1); BASOPHILS % (AUTO) 1 % (0-10); EOSINOPHILS % (AUTO) 0 % (0-10); HEMATOCRIT 31 % (35-52); HEMOGLOBIN 10.1 g/dL (11.5-16.0); LYMPHOCYTES % (AUTO) 20 % (12-44); MEAN CORPUSCULAR HEMOGLOBIN 32 pg (25-34); MEAN CORPUSCULAR HGB CONC 32 g/dL (32-36); MEAN CORPUSCULAR VOLUME 100 fL (80-99); MEAN PLATELET VOLUME 9.9 fL (9.0-12.2); MONOCYTES # (AUTO) 0.9 10^3/uL (0.0-1.0); MONOCYTES % (AUTO) 17 % (0-12); NEUTROPHILS # (AUTO) 3.1 10^3/uL (1.8-7.8); NEUTROPHILS % (AUTO) 61 % (42-75); PLATELET COUNT 199 10^3/uL (130-400); WHITE BLOOD COUNT 5.1 10^3/uL (4.3-11.0)
[2021-11-05 11:29] LABS: ALBUMIN 3.7 GM/DL (3.2-4.5); BILIRUBIN,TOTAL 0.2 MG/DL (0.1-1.0); CALCIUM 9.4 MG/DL (8.5-10.1); CREATININE SERUM 0.77 MG/DL (0.60-1.30); POTASSIUM 4.6 MMOL/L (3.6-5.0); TOTAL PROTEIN 6.4 GM/DL (6.4-8.2)
== END 2021-11-09 | disposition home or self-care (01) ==
LOC: ONC 10:41
PROVIDERS: ATTEND Internal Medicine Hematology & Oncology
DX: C82.90 Follicular lymphoma, unspecified, unspecified site (principal); E66.9 Obesity, unspecified; E11.9 Type 2 diabetes mellitus without complications; F41.8 Other specified anxiety disorders; F31.9 Bipolar disorder, unspecified; D69.6 Thrombocytopenia, unspecified; K08.9 Disorder of teeth and supporting structures, unspecified
CPT/HCPCS: 80053; 85025; G0463; 36591; 99213

== ENCOUNTER 2021-12-07 14:19 | Outpatient (RCR) | payer MEDICARE, MEDICAID ==
[2021-11-23 12:06] LABS: BASOPHILS % (AUTO) 0 % (0-10); EOSINOPHILS # (AUTO) 0.2 10^3/uL (0.0-0.3); EOSINOPHILS % (AUTO) 3 % (0-10); HEMATOCRIT 40 % (35-52); HEMOGLOBIN 13.2 g/dL (11.5-16.0); LYMPHOCYTES # (AUTO) 1.2 10^3/uL (1.0-4.0); LYMPHOCYTES % (AUTO) 17 % (12-44); MEAN CORPUSCULAR HEMOGLOBIN 33 pg (25-34); MEAN CORPUSCULAR HGB CONC 33 g/dL (32-36); MEAN CORPUSCULAR VOLUME 99 fL (80-99); MEAN PLATELET VOLUME 10.1 fL (9.0-12.2); MONOCYTES # (AUTO) 0.7 10^3/uL (0.0-1.0); MONOCYTES % (AUTO) 10 % (0-12); NEUTROPHILS # (AUTO) 4.8 10^3/uL (1.8-7.8); NEUTROPHILS % (AUTO) 70 % (42-75); PLATELET COUNT 278 10^3/uL (130-400); WHITE BLOOD COUNT 6.9 10^3/uL (4.3-11.0)
[2021-11-23 12:26] LABS: ALBUMIN 4.1 GM/DL (3.2-4.5); BILIRUBIN,TOTAL 0.2 MG/DL (0.1-1.0); CALCIUM 9.9 MG/DL (8.5-10.1); POTASSIUM 4.3 MMOL/L (3.6-5.0); TOTAL PROTEIN 7.1 GM/DL (6.4-8.2)
[2021-12-07 14:51] LABS: BASOPHILS # (AUTO) 0.1 10^3/uL (0.0-0.1); BASOPHILS % (AUTO) 1 % (0-10); EOSINOPHILS # (AUTO) 0.1 10^3/uL (0.0-0.3); EOSINOPHILS % (AUTO) 2 % (0-10); HEMATOCRIT 37 % (35-52); HEMOGLOBIN 12.6 g/dL (11.5-16.0); LYMPHOCYTES # (AUTO) 1.3 10^3/uL (1.0-4.0); LYMPHOCYTES % (AUTO) 18 % (12-44); MEAN CORPUSCULAR HEMOGLOBIN 33 pg (25-34); MEAN CORPUSCULAR HGB CONC 34 g/dL (32-36); MEAN CORPUSCULAR VOLUME 97 fL (80-99); MEAN PLATELET VOLUME 9.6 fL (9.0-12.2); MONOCYTES # (AUTO) 0.6 10^3/uL (0.0-1.0); MONOCYTES % (AUTO) 9 % (0-12); NEUTROPHILS % (AUTO) 71 % (42-75); PLATELET COUNT 292 10^3/uL (130-400); WHITE BLOOD COUNT 7.1 10^3/uL (4.3-11.0)
[2021-12-07 15:15] LABS: ALBUMIN 3.9 GM/DL (3.2-4.5); BILIRUBIN,TOTAL 0.3 MG/DL (0.1-1.0); CALCIUM 9.8 MG/DL (8.5-10.1); CREATININE SERUM 0.96 MG/DL (0.60-1.30); POTASSIUM 3.8 MMOL/L (3.6-5.0); TOTAL PROTEIN 6.9 GM/DL (6.4-8.2)
== END 2021-12-10 | disposition home or self-care (01) ==
LOC: ONC 14:19
PROVIDERS: ATTEND Internal Medicine Hematology & Oncology
DX: C82.90 Follicular lymphoma, unspecified, unspecified site (principal); E66.9 Obesity, unspecified; E11.9 Type 2 diabetes mellitus without complications; F41.8 Other specified anxiety disorders; F31.9 Bipolar disorder, unspecified; D69.6 Thrombocytopenia, unspecified; K08.9 Disorder of teeth and supporting structures, unspecified; E03.9 Hypothyroidism, unspecified
CPT/HCPCS: 36415; 80053; 85025; 99213

== ENCOUNTER 2021-12-21 10:40 | Outpatient (RCR) | payer MEDICARE, MEDICAID ==
[2021-12-21 10:56] LABS: BASOPHILS % (AUTO) 0 % (0-10); EOSINOPHILS # (AUTO) 0.1 10^3/uL (0.0-0.3); EOSINOPHILS % (AUTO) 2 % (0-10); HEMATOCRIT 36 % (35-52); LYMPHOCYTES % (AUTO) 13 % (12-44); MEAN CORPUSCULAR HEMOGLOBIN 32 pg (25-34); MEAN CORPUSCULAR HGB CONC 33 g/dL (32-36); MEAN CORPUSCULAR VOLUME 97 fL (80-99); MEAN PLATELET VOLUME 9.5 fL (9.0-12.2); MONOCYTES # (AUTO) 0.6 10^3/uL (0.0-1.0); MONOCYTES % (AUTO) 8 % (0-12); NEUTROPHILS # (AUTO) 5.7 10^3/uL (1.8-7.8); NEUTROPHILS % (AUTO) 77 % (42-75); PLATELET COUNT 311 10^3/uL (130-400); WHITE BLOOD COUNT 7.5 10^3/uL (4.3-11.0)
[2021-12-21 11:22] LABS: BILIRUBIN,TOTAL 0.4 MG/DL (0.1-1.0); CALCIUM 9.6 MG/DL (8.5-10.1); CREATININE SERUM 1.23 MG/DL (0.60-1.30); TOTAL PROTEIN 6.6 GM/DL (6.4-8.2)
== END 2022-01-09 | disposition home or self-care (01) ==
LOC: ONC 10:40
PROVIDERS: ATTEND Internal Medicine Hematology & Oncology
DX: C82.90 Follicular lymphoma, unspecified, unspecified site (principal); E66.9 Obesity, unspecified; E11.9 Type 2 diabetes mellitus without complications; F41.8 Other specified anxiety disorders; F31.9 Bipolar disorder, unspecified; K08.9 Disorder of teeth and supporting structures, unspecified; E03.9 Hypothyroidism, unspecified; D69.59 Other secondary thrombocytopenia
CPT/HCPCS: 80053; 85025; G0463; 36415; 99213

== ENCOUNTER 2022-01-11 09:32 | Outpatient (RCR) | payer MEDICARE, MEDICAID ==
[2022-01-11 09:46] LABS: BASOPHILS # (AUTO) 0.1 10^3/uL (0.0-0.1); BASOPHILS % (AUTO) 1 % (0-10); EOSINOPHILS # (AUTO) 0.1 10^3/uL (0.0-0.3); EOSINOPHILS % (AUTO) 2 % (0-10); HEMATOCRIT 36 % (35-52); HEMOGLOBIN 12.1 g/dL (11.5-16.0); LYMPHOCYTES % (AUTO) 21 % (12-44); MEAN CORPUSCULAR HEMOGLOBIN 33 pg (25-34); MEAN CORPUSCULAR HGB CONC 33 g/dL (32-36); MEAN CORPUSCULAR VOLUME 100 fL (80-99); MEAN PLATELET VOLUME 9.5 fL (9.0-12.2); MONOCYTES # (AUTO) 0.7 10^3/uL (0.0-1.0); MONOCYTES % (AUTO) 15 % (0-12); NEUTROPHILS # (AUTO) 2.8 10^3/uL (1.8-7.8); NEUTROPHILS % (AUTO) 57 % (42-75); PLATELET COUNT 257 10^3/uL (130-400); WHITE BLOOD COUNT 4.9 10^3/uL (4.3-11.0)
[2022-01-11 10:10] LABS: ALBUMIN 3.8 GM/DL (3.2-4.5); BILIRUBIN,TOTAL 0.3 MG/DL (0.1-1.0); CALCIUM 9.1 MG/DL (8.5-10.1); CREATININE SERUM 1.1 MG/DL (0.60-1.30); TOTAL PROTEIN 6.2 GM/DL (6.4-8.2)
== END 2022-02-09 | disposition home or self-care (01) ==
LOC: ONC 09:32
PROVIDERS: ATTEND Internal Medicine Hematology & Oncology
DX: C82.90 Follicular lymphoma, unspecified, unspecified site (principal); D69.59 Other secondary thrombocytopenia; E11.9 Type 2 diabetes mellitus without complications; K08.9 Disorder of teeth and supporting structures, unspecified
CPT/HCPCS: 80053; 85025; G0463; 36415; 99213

== ENCOUNTER 2022-02-27 11:01 | Outpatient (RCR) | payer MEDICARE, MEDICAID ==
[2022-02-27 11:55] LABS: BASOPHILS % (AUTO) 1 % (0-10); EOSINOPHILS # (AUTO) 0.1 10^3/uL (0.0-0.3); EOSINOPHILS % (AUTO) 2 % (0-10); HEMATOCRIT 34 % (35-52); HEMOGLOBIN 11.3 g/dL (11.5-16.0); LYMPHOCYTES # (AUTO) 1.2 10^3/uL (1.0-4.0); LYMPHOCYTES % (AUTO) 23 % (12-44); MEAN CORPUSCULAR HEMOGLOBIN 34 pg (25-34); MEAN CORPUSCULAR HGB CONC 34 g/dL (32-36); MEAN CORPUSCULAR VOLUME 100 fL (80-99); MEAN PLATELET VOLUME 10.3 fL (9.0-12.2); MONOCYTES # (AUTO) 0.6 10^3/uL (0.0-1.0); MONOCYTES % (AUTO) 11 % (0-12); NEUTROPHILS # (AUTO) 3.3 10^3/uL (1.8-7.8); NEUTROPHILS % (AUTO) 62 % (42-75); PLATELET COUNT 206 10^3/uL (130-400); WHITE BLOOD COUNT 5.2 10^3/uL (4.3-11.0)
[2022-02-27 12:19] LABS: BILIRUBIN,TOTAL 0.4 MG/DL (0.1-1.0); CALCIUM 9.1 MG/DL (8.5-10.1); CREATININE SERUM 1.1 MG/DL (0.60-1.30); POTASSIUM 4.3 MMOL/L (3.6-5.0); TOTAL PROTEIN 6.2 GM/DL (6.4-8.2)
== END 2022-03-12 | disposition home or self-care (01) ==
LOC: ONC 11:01
PROVIDERS: ATTEND Internal Medicine Hematology & Oncology
DX: Z45.2 Encounter for adjustment and management of vascular access device (principal); C82.90 Follicular lymphoma, unspecified, unspecified site; D69.59 Other secondary thrombocytopenia; E11.9 Type 2 diabetes mellitus without complications; K08.9 Disorder of teeth and supporting structures, unspecified
CPT/HCPCS: 36591; 80053; 85025

== ENCOUNTER 2022-05-29 09:34 | Outpatient (RCR) | payer MEDICARE, MEDICAID ==
[2022-05-29 10:10] LABS: BASOPHILS # (AUTO) 0.1 10^3/uL (0.0-0.1); BASOPHILS % (AUTO) 1 % (0-10); EOSINOPHILS # (AUTO) 0.1 10^3/uL (0.0-0.3); EOSINOPHILS % (AUTO) 2 % (0-10); HEMATOCRIT 35 % (35-52); LYMPHOCYTES # (AUTO) 1.1 10^3/uL (1.0-4.0); LYMPHOCYTES % (AUTO) 16 % (12-44); MEAN CORPUSCULAR HEMOGLOBIN 34 pg (25-34); MEAN CORPUSCULAR HGB CONC 34 g/dL (32-36); MEAN CORPUSCULAR VOLUME 100 fL (80-99); MEAN PLATELET VOLUME 9.9 fL (9.0-12.2); MONOCYTES # (AUTO) 0.7 10^3/uL (0.0-1.0); MONOCYTES % (AUTO) 10 % (0-12); NEUTROPHILS # (AUTO) 4.5 10^3/uL (1.8-7.8); NEUTROPHILS % (AUTO) 71 % (42-75); PLATELET COUNT 246 10^3/uL (130-400); WHITE BLOOD COUNT 6.4 10^3/uL (4.3-11.0)
[2022-05-29 10:26] LABS: ALBUMIN 4.1 GM/DL (3.2-4.5); BILIRUBIN,TOTAL 0.3 MG/DL (0.1-1.0); CALCIUM 9.3 MG/DL (8.5-10.1); CREATININE SERUM 0.94 MG/DL (0.60-1.30); POTASSIUM 4.3 MMOL/L (3.6-5.0); TOTAL PROTEIN 6.6 GM/DL (6.4-8.2)
== END 2022-06-09 | disposition home or self-care (01) ==
LOC: ONC 09:34
PROVIDERS: ATTEND Internal Medicine Hematology & Oncology
DX: Z45.2 Encounter for adjustment and management of vascular access device (principal); C82.90 Follicular lymphoma, unspecified, unspecified site; D69.59 Other secondary thrombocytopenia; E11.9 Type 2 diabetes mellitus without complications; K08.9 Disorder of teeth and supporting structures, unspecified; E66.9 Obesity, unspecified; Z72.0 Tobacco use
CPT/HCPCS: 36591; 80053; 85025

== ENCOUNTER 2022-08-27 12:37 | Outpatient (RCR) | payer MEDICARE, MEDICAID | END 2022-09-09 | disposition home or self-care (01) | LOC: ONC 12:37 | PROVIDERS: ATTEND Internal Medicine Hematology & Oncology | DX: Z45.2 Encounter for adjustment and management of vascular access device (principal); C82.90 Follicular lymphoma, unspecified, unspecified site; D69.59 Other secondary thrombocytopenia; E11.9 Type 2 diabetes mellitus without complications; K08.9 Disorder of teeth and supporting structures, unspecified; E66.9 Obesity, unspecified; Z72.0 Tobacco use | CPT/HCPCS: 96523 ==

== ENCOUNTER 2022-11-28 09:54 | Outpatient (RCR) | payer MEDICARE, MEDICAID ==
[2022-11-28 10:03] LABS: BASOPHILS % (AUTO) 1 % (0-10); EOSINOPHILS # (AUTO) 0.1 10^3/uL (0.0-0.3); EOSINOPHILS % (AUTO) 3 % (0-10); HEMATOCRIT 37 % (35-52); HEMOGLOBIN 12.1 g/dL (11.5-16.0); LYMPHOCYTES # (AUTO) 1.2 10^3/uL (1.0-4.0); LYMPHOCYTES % (AUTO) 23 % (12-44); MEAN CORPUSCULAR HEMOGLOBIN 33 pg (25-34); MEAN CORPUSCULAR HGB CONC 33 g/dL (32-36); MEAN CORPUSCULAR VOLUME 100 fL (80-99); MEAN PLATELET VOLUME 9.8 fL (9.0-12.2); MONOCYTES # (AUTO) 0.5 10^3/uL (0.0-1.0); MONOCYTES % (AUTO) 10 % (0-12); NEUTROPHILS # (AUTO) 3.3 10^3/uL (1.8-7.8); NEUTROPHILS % (AUTO) 63 % (42-75); PLATELET COUNT 153 10^3/uL (130-400); WHITE BLOOD COUNT 5.3 10^3/uL (4.3-11.0)
[2022-11-28 10:25] LABS: POTASSIUM 4.8 MMOL/L (3.6-5.0)
[2022-11-28 10:26] LABS: CALCIUM 9.5 MG/DL (8.5-10.1)
[2022-11-28 10:27] LABS: TOTAL PROTEIN 6.4 GM/DL (6.4-8.2)
[2022-11-28 10:29] LABS: BILIRUBIN,TOTAL 0.4 MG/DL (0.1-1.0)
[2022-11-28 10:31] LABS: CREATININE SERUM 0.95 MG/DL (0.60-1.30)
== END 2022-12-10 | disposition home or self-care (01) ==
LOC: ONC 09:54
PROVIDERS: ATTEND Internal Medicine Hematology & Oncology
DX: Z45.2 Encounter for adjustment and management of vascular access device (principal); C82.90 Follicular lymphoma, unspecified, unspecified site; D69.59 Other secondary thrombocytopenia; E11.9 Type 2 diabetes mellitus without complications; K08.9 Disorder of teeth and supporting structures, unspecified; E66.9 Obesity, unspecified; Z72.0 Tobacco use
CPT/HCPCS: 36415; 36591; 80053; 85025; 99214